=== PATIENT | male | born 1955 | race Caucasian/White ===

== ENCOUNTER 2016-09-18 08:01 | Inpatient (IN) ==
[2016-09-18] MEDS ORDERED: METOPROLOL TARTRATE 5 MG/5 ML VIAL IV STA (08:22)
[2016-09-18] MEDS ORDERED: MORPHINE 2 MG/1 ML SYRINGE IV PRN (08:22)
[2016-09-18] MEDS ORDERED: ENOXAPARIN 100 MG/ML SYRINGE SUBCUT STA (08:22)
[2016-09-18] MEDS ORDERED: NITROGLYCERIN 2% OINT 1 INCH/GM PACK TOP STA (08:22)
[2016-09-18] MEDS ORDERED: ONDANSETRON 4 MG/2 ML VIAL IV PRN ×2 (08:22→11:03)
[2016-09-18] MEDS ORDERED: ASPIRIN 325 MG TABLET PO STA (08:22)
[2016-09-18] MEDS ORDERED: NITROGLYCERIN SL 0.4 MG TABLET SL PRN ×3 (08:22→11:24)
--- NOTE | 2016-09-18 08:25 | EKG Report ---
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
[2016-09-18] MEDS ORDERED: NITROGLYCERIN 2% OINT 1 INCH/GM PACK TOP ONE (08:31)
[2016-09-18] MEDS ORDERED: METOPROLOL TARTRATE 5 MG/5 ML VIAL IV ONE (08:32)
[2016-09-18] MEDS ORDERED: ENOXAPARIN 80 MG/0.8 ML SYRINGE SUBCUT ONE (08:32)
[2016-09-18] MEDS ORDERED: ASPIRIN 325 MG TABLET ONE (08:32)
--- NOTE | 2016-09-18 08:41 | Emergency Department Note ---
Nida Johnson Mantricia, am scribing for, and in the presence of, Anthony Elias MD 08:31. Jada Johnson James D, MD, personally performed the services described in this documentation, ascribed by Chato Alva in my presence, and it is both accurate and complete 837 . Arrival - Arrival Chief Complaint: Chest Pain Stated Complaint: cp ED Nursing Triage Note: C/O CHEST PAIN WITH ONSET SATURDAY. +NUMBESS IN ARMS, +SOB Mode of Arrival: Ambulatory Limitations: No Limitations Source: Patient, Significant other Time Seen by Provider: 09/18/16 08:22 - History of Present Illness HPI Narrative: Pt is a 60 y/o white male arriving to Ed with c/o chest pain that onset 2 days ago. Pt reports that he was fixing a window when he noticed the pain and that it worsens when walking. Pt has 2 stents placed and states that the pain now is similar to the pain he was experiencing before the stents. He reports SOB and states that the pain radiates to his LUE. He reports that he has been taking NTG , but they have and not have been helping. Pt has a PMHX of HTN. He reports no other complaints to ED. Onset (ago): day(s) Consistency: constant Severity: moderate Allergies/Adverse Reactions: Allergies Allergy/AdvReac Type Severity Reaction Status Date / Time No Known Allergies Allergy Unverified 09/18/16 08:06 Review of System - Review of System 12 point system: reviewed and no additional remarkable complaints except as stated - Review of System Constitutional: Absent: chills, diaphoresis, fever Eyes: Absent: discharge, pain Cardiovascular: Present: chest pain, dyspnea on exertion Gastrointestinal: Absent: abdominal pain, nausea, vomiting, diarrhea Musculoskeletal: Present: arm pain. Absent: back pain, leg pain, neck pain Medical,Surgical,& Family Hx - Medical History Cardio: History of: Hypertension, [place] Endocrine: History of: Diabetes Mellitus (NIDDM) Genitourinary: History of: Kidney Stones - Surgical History Cardiac Surgeries: Sugical HX of: Cardiac Catheterization (WITH STENTS) - Family History Family History: Reports;: Family Cancer, Family Heart Disease - Social History Smoking Status: Current every day smoker Frequency of Alcohol Use: Rarely Type of Drug Use: None Functional capacity: independent ambulation Exam Physical Examination: GENERAL: This is a well-nourished, well-developed male in no apparent distress. VITAL SIGNS: HEENT: Head is normocephalic and atraumatic. Pupils are equally round and reactive to light. Extraocular movement are intact. Oropharynx is benign with moist mucous membranes. NECK: Neck is soft and supple without tenderness. There are no masses. There is no lymphadenopathy. LUNGS: Lungs are clear to auscultation bilaterally. Chest rises symmetrically. There is no chest wall tenderness. CV: Heart is regular rate and rhythm without murmurs, rubs, or gallops. Midsternal tendernes present. ABDOMEN: Abdomen is soft, non-tender to palpation. There are no abnormal masses palpated. There is no organomegaly. Bowel sounds are present and active. SKIN: Skin is warm and dry. No rash. EXTREMITIES: Patient has full range of motion without tenderness. There is no pedal edema. NEUROLOGIC: Awake, alert, and oriented x4. Cranial nerves II through XII are grossly intact. There are no motorsensory deficits. PSYCHIATRIC: Normal affect. Normal mood. Vital Signs: Vital Signs Temperature 97.1 F L 09/18/16 08:23 Pulse Rate 79 09/18/16 08:40 Respiratory Rate 22 09/18/16 08:40 Blood Pressure 169/101 09/18/16 08:40 O2 Sat by Pulse Oximetry 98 09/18/16 08:40 Course Course Narrative: Patient was given nitroglycerin, aspirin, Lovenox, morphine, metoprolol, and Zofran in the emergency department. Following administration of these medications the patient had marked improvement in his pain. Pain however was not completely relieved with these meds. - Consultations Consultation #1: Discussed with Dr. Dubon. Patient will be admitted to his service. The patient will be seen in the emergency department by him. Patient will be taken to the [facility] for left heart cath and PCI. Time: 08:45 Consultation #2: Once again talked with Dr. Dubon after return of patient's troponin. Patient will be taken to the [facility]. Time: 09:21 Results - Labs CBC & BMP: 09/18/16 08:33 09/18/16 08:33 Lab Results: I have reviewed the patients labs Labs: Laboratory Tests 09/18/16 08:33 Troponin I 10.700 H - EKG EKG results: interpreted by ERMD - Impressions EKG: Normal sinus rhythm with a rate of 80, ST segment depression laterally consistent with lateral ischemia, normal axis. - Diagnostic Findings Procedure: Chest x-ray: image reviewed by me (No infiltrates, no pleural effusions., Some increased pulmonary markings bilaterally.) Critical Care Time Critical Care Time: Yes Total Critical Care Time: 60 Attestation: Administration of morphine, Zofran, nitroglycerin, metoprolol, Lovenox and aspirin. Disposition Clinical Impression: Diabetes mellitus, Nicotine addiction, Essential hypertension, Coronary artery disease, Non-ST elevation PA (NSTEMI) Case discussed with: patient Disposition: Still a Patient Condition: Stable Time of Disposition: 08:39
[2016-09-18 08:44] LABS: Basophils # 0.1 10*3/uL (0.0-0.2); Basophils % 0.4 % (0.0-0.8); Eosinophils # 0.2 10*3/uL (0.0-0.87); Eosinophils % 1.4 % (0.00-10.9); Hematocrit 43.4 VOL% (42.0-52.0); Hemoglobin 15.1 GM/DL (14.0-18.0); Immature Granulocytes % 0.6 %; Immature Granulocytes Absolute 0.08 #; Lymphocytes # 2.5 10*3/uL (1.4-4.0); Lymphocytes % 18.4 % (21.2-54.2); Mean Corpuscular HGB Conc 34.8 GM/DL (32-36); Mean Corpuscular Hemoglobin 30 PG (27-34); Mean Corpuscular Volume 86.3 FL (87-102); Mean Platelet Volume 9.9 FL (9.6-12.0); Monocytes # 1.1 10*3/uL (0.11-0.8); Monocytes % 8.2 % (1.7-12.7); Neutrophils # 9.8 10*3/uL (1.4-7.4); Platelet Count 328 T/CUMM (130-400); Red Blood Count 5.03 MC/CUMM (3.8-5.5); Red Cell Distribution Width 15.2 % (9.3-17.3); White Blood Count 13.7 T/CUMM (4-12)
[2016-09-18 08:49] LABS: Apearance,Urine CLEAR (Clear); Bilirubin,Urine Negative (Negative); Blood, Urine Negative (Negative); Glucose,Urine (UA) 50 mg/dL (Negative); Ketones,Urine 5 mg/dL (Negative); Mucus,Urine Occasional /LPF (Occasional); Nitrite,Urine Negative (Negative); Protein,Urine Negative; RBC,Urine 1 /HPF (0-4); Squamous Epithelial Cell,Urine Occasional /HPF (0-10); Urine Color Straw (Yellow); Urine Specific Gravity 1.012 (1.001-1.035); Urine Urobilinogen < 2.0 EU/DL (0.2-1.0); WBC,Urine <1 /HPF (0-6)
[2016-09-18 08:56] LABS: Barbiturates Screen,Urine Negative (Negative); Benzodiazepines Screen,Urine Positive (Negative); Cannabinoid Screen,Urine Negative (Negative); Opiate Screen,Urine Negative (Negative); Phencyclidine Screen,Urine Negative (Negative)
[2016-09-18 08:57] LABS: PT Patient Result 10.2 SECS; Partial Thromboplastin Time 30.9 SECS (0-40)
--- NOTE | 2016-09-18 09:07 | XRay Report ---
XR chest 2V Date: 09/18/2016 8:22 AM History: Chest pain Comparison: 10/05/2010 Technique: PA and lateral chest Findings: The heart is small and compressed by the over expanded lungs. Chronic scarring with atelectasis and calcified granulomata/nodes. Degenerative changes are noted. Impression: Bullous emphysema with chronic scarring and residual atelectasis. PROCEDURE INTERPRETED AT [facility] DEPARTMENT OF RADIOLOGY Final Report Signed by: Dr. Miriam Son
[2016-09-18 09:11] LABS: Alanine Aminotransferase 24 U/L (16-61); Albumin 3.6 G/DL (3.4-5.0); Alkaline Phosphatase 106 U/L (45-117); Aspartate Amino Transferase 80 U/L (0-37); Bilirubin,Total < 0.39 MG/DL (0.2-1.0); Calcium 8.8 MG/DL (8.5-10.1); Total Protein 7.5 G/DL (6.4-8.3)
[2016-09-18 09:12] LABS: Blood Urea Nitrogen 16 MG/DL (7-18); Glucose 249 MG/DL (74-106); Magnesium 1.9 MG/DL (1.8-2.4); Osmolality,Calculated 283.7 MOS/KG (273-304); Potassium 4.3 MMOL/L (3.5-5.1); Sodium 138 MMOL/L (136-145)
[2016-09-18] MEDS ORDERED: diphenhydrAMINE CAP 25 MG CAPSULE PO ONE (09:36)
[2016-09-18] MEDS ORDERED: DIAZEPAM 5 MG TABLET PO ONE (09:36)
[2016-09-18] MEDS ORDERED: MAGNESIUM SULF RIDER 2 GM in PREMIX 1 EACH IV PRN (09:36)
[2016-09-18] MEDS ORDERED: POTASSIUM CHLORIDE RIDER 10 MEQ in PREMIX 1 EACH IV PRN (09:36)
[2016-09-18] MEDS ORDERED: HYDROmorphone 2 MG/1 ML VIAL ONE (09:38)
[2016-09-18] MEDS ORDERED: LIDOCAINE 1% 20 ML VIAL ONE (09:38)
[2016-09-18] MEDS ORDERED: MIDAZOLAM 2 MG/2 ML VIAL ONE (09:38)
--- NOTE | 2016-09-18 09:44 | Cardiology History & Physical ---
Assessment and Plan (1) Nicotine addiction Status: Acute Assessment and plan: 1. 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 He came back with small non-STEMI September 2013 which was treated medically, now has non-STEMI with persistent waxing and waning pain for 36 hours and slight lateral [address] depression. 2. Given Lovenox and Aggrastat is been ordered 3. Urgent heart catheterization to define his coronary anatomy with intervention is appropriate. 4. Obviously discontinue all smoking and controlling his diabetes and hypertension will be important going forward. He has been noncompliant previously. I discussed with the patient the risks and benefits of heart catheterization including but not limited to: , stroke, heart attack, vascular damage, reaction to medicine or dye, bleeding requiring blood transfusion, failure of the procedure, and the possible need for planned or emergency surgery. I have answered all the patient's questions regarding the procedure, and the patient is agreeable to proceed. Current Visit: Yes (2) Essential hypertension Status: Acute Current Visit: Yes (3) Coronary artery disease Status: Acute Current Visit: Yes (4) Non-ST elevation [place] (NSTEMI) Status: Acute Current Visit: Yes History of Present Illness Chief complaint: cp History of present illness: Mr. Barron is a 60 year old male known to me who did not follow-up after his last event 2013. He presented September 2010 with chest pain and apparently had mid to distal LAD stent placed at that time when he had classic progressive angina. He also had a CT of the right coronary which could not be opened at that time in the midportion. He came back in September 2013 with non-STEMI when he had patent LAD stent and again mid RCA occlusion filling by left right collaterals was treated medically. He continues to smoke a pack a day, reports that he has had constant waxing and waning chest pain for the last 36 hours rating to his left shoulder. He has associated shortness of breath. He had no relief with nitroglycerin but I gave him a headache. He took BC powders. In the ER he had trivial lateral ST depression and persistent chest pain. He has significant elevated troponin was diagnosed with non-STEMI. Allergies Allergy/AdvReac Type Severity Reaction Status Date / Time No Known Allergies Allergy Unverified 09/18/16 08:06 Medical,Surgical,& Family Hx - Medical History Cardio: History of: Hypertension, [place] Endocrine: History of: Diabetes Mellitus (NIDDM) Genitourinary: History of: Kidney Stones - Surgical History Cardiac Surgeries: Sugical HX of: Cardiac Catheterization (WITH STENTS) - Family History Family History: Reports;: Family Cancer, Family Heart Disease - Social History Smoking Status: Current every day smoker Frequency of Alcohol Use: Rarely Type of Drug Use: None Cardiology Physical Exam - Constitutional Vitals: Vital Signs Temp Pulse Resp BP Pulse Ox 97.1 F L 79 22 169/101 98 09/18/16 08:23 09/18/16 08:40 09/18/16 08:40 09/18/16 08:40 09/18/16 08:40 Intake and Output 09/17/16 09/18/16 09/18/16 23:59 07:59 15:59 Other: Weight 81.647 kg Patient Weight 09/18/16 23:59 Weight 81.647 kg General appearance: normal weight, mild distress - Head Head exam: Present: normal inspection, normocephalic, atraumatic - Neck Neck exam: Present: normal inspection - Respiratory Respiratory exam: Present: clear to auscultation bilaterally. Absent: stridor, wheezes - Cardiovascular Cardiovascular exam: Present: regular rate and rhythm. Absent: diastolic murmur , rubs - GI/Abdominal GI/Abdominal exam: Present: soft. Absent: tenderness - Extremities Exam Extremities exam: Absent: edema Result/EKG - Labs CBC & BMP: 09/18/16 08:33 09/18/16 08:33 Labs: Laboratory Results - last 24 hr 09/18/16 09/18/16 09/18/16 08:33 08:33 08:33 WBC RBC Hgb Hct MCV MCH MCHC RDW Plt Count MPV Neut % (Auto) Lymph % (Auto) [place] % (Auto) Eos % (Auto) Baso % (Auto) Neut # (Auto) Lymph # (Auto) [place] # (Auto) Eos # (Auto) Baso # (Auto) Immature Gran % Nucleated RBC % Immature Gran # Nucleated RBCs # INR 1.0 PT Patient/Control Mix 10.2 Circ Anticoag PTT 30.9 Sodium 138 Potassium 4.3 Chloride 110 H Carbon Dioxide 23 Anion Gap 9.3 BUN 16 Creatinine 1.30 GFR Calculation 68 BUN/Creatinine Ratio 12.00 Glucose 249 H Calculated Osmolality 283.7 Calcium 8.8 Magnesium 1.9 Total Bilirubin < 0.39 AST 80 H ALT 24 Alkaline Phosphatase 106 Troponin I Total Protein 7.5 Albumin 3.6 Globulin 3.9 H Albumin/Globulin Ratio 0.9 L Lipase 452.0 H Urine Color Straw Urine Appearance Clear Urine pH 5.0 Ur Specific [place] 1.012 Urine Protein Negative Urine Glucose (UA) 50 Urine Ketones 5 Urine Blood Negative Urine Nitrate Negative Urine Bilirubin Negative Urine Urobilinogen < 2.0 H Urine Leukocytes Negative Urine RBC 1 Urine WBC <1 Ur Squamous Epith Cells Occasional Urine Mucus Occasional Ur Culture Indicated? Not indicated Urine Opiates Screen Ur Barbiturates Screen Ur Phencyclidine Scrn U Amphetamine/Methamph U Benzodiazepines Scrn U Cocaine Metab Screen U Cannabinoids Screen 09/18/16 09/18/16 09/18/16 08:33 08:33 08:33 WBC 13.7 H RBC 5.03 Hgb 15.1 Hct 43.4 MCV 86.3 L MCH 30 MCHC 34.8 RDW 15.2 Plt Count 328 MPV 9.9 Neut % (Auto) 71.0 Lymph % (Auto) 18.[address] % (Auto) 8.2 Eos % (Auto) 1.4 Baso % (Auto) 0.4 Neut # (Auto) 9.8 H Lymph # (Auto) 2.5 [place] # (Auto) 1.1 H Eos # (Auto) 0.2 Baso # (Auto) 0.1 Immature Gran % 0.6 Nucleated RBC % 0.0 Immature Gran # 0.08 Nucleated RBCs # 0.00 INR PT Patient/Control Mix Circ Anticoag PTT Sodium Potassium Chloride Carbon Dioxide Anion Gap BUN Creatinine GFR Calculation BUN/Creatinine Ratio Glucose Calculated Osmolality Calcium Magnesium Total Bilirubin AST ALT Alkaline Phosphatase Troponin I 10.700 H Total Protein Albumin Globulin Albumin/Globulin Ratio Lipase Urine Color Urine Appearance Urine pH Ur Specific [place] Urine Protein Urine Glucose (UA) Urine Ketones Urine Blood Urine Nitrate Urine Bilirubin Urine Urobilinogen Urine Leukocytes Urine RBC Urine WBC Ur Squamous Epith Cells Urine Mucus Ur Culture Indicated? Urine Opiates Screen Negative Ur Barbiturates Screen Negative Ur Phencyclidine Scrn Negative U Amphetamine/Methamph Negative U Benzodiazepines Scrn Positive H U Cocaine Metab Screen Negative U Cannabinoids Screen Negative
[2016-09-18] MEDS ORDERED: TIROFIBAN 5,000 MCG/100 ML PREMIX IV ONE (10:00)
[2016-09-18] MEDS: TIROFIBAN 5,000 MCG/100 ML PREMIX IV SCH ×3 (10:06→23:47)
[2016-09-18] MEDS ORDERED: TICAGRELOR 90 MG TABLET ONE (10:39)
--- NOTE | 2016-09-18 11:02 | Cardiac Catheterization ---
Date of Procedure:: 09/18/16 Post-op diagnosis: same Procedure: Procedure performed: 1. Left heart catheterization 2. Coronary angiography 3. Left ventriculography 4. Angioplasty stenting of distal circumflex occlusion with drug-eluting stent (2.25 x 16 synergy) 5. Status post angioplasty stenting of mid LAD with drug-eluting stent oh ( 2.25 x 32 Synergy) 6. Right femoral arteriotomy closed with Angio-Seal device Brief clinical summary: Mr. Magallanes came in with 36 hours of waxing and waning chest pain with non-STEMI and minimal ST depression laterally. He continues to smoke. Description of procedure: After obtaining informed consent, the right groin was prepped and draped in the usual sterile fashion. Next a short 6 Welsh sheath was placed in the right femoral artery using a modified Seldinger technique, after the patient received IV sedation and local anesthetic. Next a JL4 catheter was advanced over a guidewire under fluoroscopic guidance, and was engaged to the left coronary artery after which angiography was performed in multiple views. Percutaneous coronary mention was then performed as described below. After the intervention, a JR4 catheter was advanced in similar fashion, and was engaged to the right coronary artery after which angiography was performed in multiple views. Next a bent pigtail catheter was advanced into the left ventricle, where hemodynamic measurements were obtained, and left ventriculography was performed. An angiogram of the sheath showed that it was inserted in the right common femoral artery in a vessel suitable for closure. Hemostasis was obtained with Angio-Seal device with no residual bleeding. 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 Percutaneous coronary mention: The patient on the [place] having received aspirin and full dose Lovenox. We gave him Aggrastat bolus and infusion. I have asked the EBU 3.5 guiding catheter to engage the left coronary artery which provided fairly good support. A pro-water wire was advanced across the distal occlusion with little difficulty. I then advanced a 2.25 x 20 balloon across did not performed inflation to below nominal pressures. This restored ELIO-3 flow with at least 50% residual stenosis distally at the bifurcation of the OM 2 and the circumflex proper. The balloon was then removed and a 2.25 x 16 Synergy stent was advanced across the area of previous occlusion was dilated to 2.17 mm just below nominal pressure. The stent appeared to be well sized proximally but oversized a bit distally. The balloon was removed and a 2.0 x 20 was advanced and approximately nominal pressure angioplasty was performed in the distal circumflex with 30% residual stenosis by ELIO-3 flow. The balloon was then removed and the wire was read directed down the LAD into the distal LAD with modest difficulty. Next the 2.0 x 20 balloon was advanced across the area of severe ISR as well as the significant disease just distal to stent him just proximal to the stent. It was dilated to above nominal pressures. There was over 30% residual stenosis. The balloon was removed and a 2.25 x 32 mm Synergy stent was advanced across the entire of disease and was deployed at just below nominal pressures. The stent was slightly oversized distally with undersized proximally. Therefore the balloon was removed and a 2.75 x 15 noncompliant balloon was advanced into the proximal portion of the stent was dilated to above nominal pressures with an excellent radiographic result. The patient tolerated without complication. Coronary angiography: Left main coronary is normal development free disease. Left anterior descending artery is of average caliber proximally with 3 thin diagonal branches being noted. There is also a 70% mid LAD stenosis prior to 90 % in-stent restenosis involving the vessel just distal to the stent. The LAD does just reach the apex. The circumflex is larger than average caliber and gives off a thin OM1 branch with a widely patent mid circumflex stent, and a large OM 2 branch just after the stent with 50% proximal stenosis. There is a mid circumflex occlusion immediately after the takeoff of the OM 2. After opening the vessel there is noted to be a thinner than average OM 3 branch, and 3 reasonably thin posterolateral branches. There is diffuse intermediate disease in the distal circumflex. The right coronary artery has a subtotal proximal occlusion, as well as a subtotal distal occlusion with ELIO II flow being noted in the PDA which also fills by some left right collaterals. It appears to be a dominant but small than average caliber vessel. Left ventricular: Left ventricle appears normal in size with normal overall LV systolic function. Ejection fraction 55% with moderate discrete inferobasal hypokinesis. Impression: 1. Normal overall LV systolic function with ejection fraction estimated 55% with discrete inferobasal hypokinesis 2. Right dominant system 3. Coronary artery disease as described above including but not limited to: A. Diffuse 70-90% mid LAD stenosis (most severe diseases in-stent with significant disease also in her proximal to it) B. Patent mid circumflex stent with mid circumflex occlusion immediately at the takeoff of a large OM 2 branch C. Subtotal proximal and distal RCA occlusions with ELIO II flow in the PDA with some filling also from left right collaterals. 4. Status post angioplasty and stenting of mid circumflex occlusion with drug- eluting stent (2.25 x 16 Synergy) with excellent result after post dilating the distal vasculature with 2.0 X 20 balloon. 5. Status post stenting of mid LAD nez perce and severe in-stent disease with drug -eluting stent (2.25 x 32 Synergy), with excellent result after post LAD in the proximal portion with 2.75 mm balloon) Recommendation discussion: It is clear that the distal circumflex occlusion was the culprit vessel. However we achieved very good result cart distending is clearly significant LAD disease which is fairly diffuse. In 2010 he poorly had attempt open his right CTA without success. However his RCA appears to be addressable by percutaneous means. He has subtotal proximal and distal lesions. However given his acute event and dying and x-ray exposure this could be considered to be performed at a later time. Getting him to stop smoking will be portillo as well as taking his baby aspirin Brilinta without fail. Anesthesia: minimal conscious sedation Surgeon / Physician: Luis Carlos Dubon Industrial Methods Consultant: other Estimated blood loss: minimal Specimens: none sent Condition: stable Disposition: ICU/CCU - Discharge Disposition: Still a Patient - Medications / Follow-up
[2016-09-18] MEDS ORDERED: ZALEPLON 5 MG CAPSULE PO PRN ×2 (11:03→11:24)
[2016-09-18] MEDS ORDERED: HYDROmorphone 2 MG/1 ML VIAL IV PRN (11:03)
[2016-09-18] MEDS ORDERED: PANTOPRAZOLE 40 MG TABLET PO SCH (11:30)
[2016-09-18] MEDS ORDERED: ROSUVASTATIN 20 MG TABLET PO SCH (11:30)
[2016-09-18] MEDS ORDERED: SODIUM CHLORIDE 0.45% 1,000 ML IV SCH (11:30)
[2016-09-18] MEDS: SODIUM CHLORIDE 0.45% 1,000 ML IV SCH (11:47)
[2016-09-18 15:00] LABS: CKMB % 8.8 %
[2016-09-18 15:10] LABS: Troponin I Only 65.7 NG/ML (0.00-0.045)
[2016-09-18] MEDS: TICAGRELOR 90 MG TABLET PO SCH (20:08)
[2016-09-18] MEDS: CARVEDILOL 3.125 MG TABLET PO SCH (20:08)
[2016-09-18] MEDS ORDERED: TICAGRELOR 90 MG TABLET PO SCH (21:00)
[2016-09-18] MEDS ORDERED: CARVEDILOL 6.25 MG TABLET PO SCH (21:00)
[2016-09-19] MEDS: SODIUM CHLORIDE 0.45% 1,000 ML IV SCH (01:12)
[2016-09-19 04:12] LABS: Basophils # 0.1 10*3/uL (0.0-0.2); Basophils % 0.6 % (0.0-0.8); Eosinophils # 0.1 10*3/uL (0.0-0.87); Eosinophils % 1.2 % (0.00-10.9); Hematocrit 38.5 VOL% (42.0-52.0); Hemoglobin 13.2 GM/DL (14.0-18.0); Immature Granulocytes % 0.4 %; Immature Granulocytes Absolute 0.04 #; Lymphocytes # 2.9 10*3/uL (1.4-4.0); Lymphocytes % 27.6 % (21.2-54.2); Mean Corpuscular HGB Conc 34.3 GM/DL (32-36); Mean Corpuscular Hemoglobin 30 PG (27-34); Mean Corpuscular Volume 86.3 FL (87-102); Mean Platelet Volume 10.2 FL (9.6-12.0); Monocytes # 1.4 10*3/uL (0.11-0.8); Monocytes % 12.9 % (1.7-12.7); Neutrophils # 6.1 10*3/uL (1.4-7.4); Neutrophils % 57.3 % (38.7-73.9); Platelet Count 294 T/CUMM (130-400); Red Blood Count 4.46 MC/CUMM (3.8-5.5); Red Cell Distribution Width 15.3 % (9.3-17.3); White Blood Count 10.6 T/CUMM (4-12)
[2016-09-19 04:42] LABS: Troponin I Only 16.3 NG/ML (0.00-0.045)
[2016-09-19 04:48] LABS: Calcium 8.6 MG/DL (8.5-10.1); Osmolality,Calculated 285.1 MOS/KG (273-304); Potassium 3.6 MMOL/L (3.5-5.1)
[2016-09-19 04:49] LABS: Risk Ratio 5.64; VLDL CHOLESTEROL 32.2 MG/DL
--- NOTE | 2016-09-19 07:19 | Cardiology Progress Note ---
Assessment and Plan (1) Nicotine addiction Status: Acute Assessment and plan: 1. 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 He came back with small non-STEMI September 2013 which was treated medically, now has non-STEMI with persistent waxing and waning pain for 36 hours [address] slight lateral [address] depression. 2. Given Lovenox and Aggrastat is been ordered 3. Urgent heart catheterization to define his coronary anatomy with intervention is appropriate. 4. Obviously discontinue all smoking and controlling his diabetes and hypertension will be important going forward. He has been noncompliant previously. I discussed with the patient the risks and benefits of heart catheterization including but not limited to: , stroke, heart attack, vascular damage, reaction to medicine or dye, bleeding requiring blood transfusion, failure of the procedure, and the possible need for planned or emergency surgery. I have answered all the patient's questions regarding the procedure, and the patient is agreeable to proceed. September 19 update: 1. Hemodynamically stable doing well status post non-STEMI with stenting of subtotal circumflex, and severe mid LAD disease yesterday without angina, or any complaints. 2. Place nicotine patch 14 mg, as the patient does not want Chantix "I am afraid of the mental side effects" 3. Right groin bruit; check ultrasound to rule out pseudoaneurysm 4. Start low-dose ALLEY inhibitor 5. We discussed avoiding simple carbohydrates (Coca[employer]Cola on his bedside table) 6. Consider restarting Glucophage tomorrow 7. Critical proximal distal right coronary disease is relatively chronic but could probably be addressed by PCI at a later time. 8. Transfer to telemetry unit per Current Visit: Yes (2) Essential hypertension Status: Acute Current Visit: Yes (3) Coronary artery disease Status: Acute Current Visit: Yes (4) Non-ST elevation NE (NSTEMI) Status: Acute Current Visit: Yes Cardiology - PN: Subj Interval history: Mr. Magallanes has had no trouble last night. He reports "I feel like a new man". He had no chest pain or dysrhythmia. Is not have any discomfort in his right groin access site. Exam (Progress Note) - Constitutional Vitals: Period Temp Pulse Resp BP Sys/Diaz Pulse Ox Last 24 Hr 97.1 F-98.5 F 55-87 12-24 100-187/56-106 89-98 General appearance: normal weight, no acute distress - Head Head exam: Present: normal inspection, normocephalic, atraumatic - Neck Neck exam: Present: normal inspection - Respiratory Respiratory exam: Present: clear to auscultation bilaterally. Absent: rhonchi, stridor - Cardiovascular Cardiovascular exam: Present: regular rate and rhythm. Absent: diastolic murmur , rubs - GI/Abdominal GI/Abdominal exam: Present: soft. Absent: tenderness - Extremities Exam Extremities exam: Present: other (Bruit at right groin site). Absent: edema Result/EKG - Labs CBC & BMP: 09/19/16 03:43 09/19/16 03:43 Labs: Laboratory Results - last 24 hr 09/18/16 09/18/16 09/18/16 08:33 08:33 08:33 WBC RBC Hgb Hct MCV MCH MCHC RDW Plt Count MPV Neut % (Auto) Lymph % (Auto) [place] % (Auto) Eos % (Auto) Baso % (Auto) Neut # (Auto) Lymph # (Auto) [place] # (Auto) Eos # (Auto) Baso # (Auto) Immature Gran % Nucleated RBC % Immature Gran # Nucleated RBCs # INR 1.0 PT Patient/Control Mix 10.2 Circ Anticoag PTT 30.9 Sodium 138 Potassium 4.3 Chloride 110 H Carbon Dioxide 23 Anion Gap 9.3 BUN 16 Creatinine 1.30 GFR Calculation 68 BUN/Creatinine Ratio 12.00 Glucose 249 H Calculated Osmolality 283.7 Calcium 8.8 Magnesium 1.9 Total Bilirubin < 0.39 AST 80 H ALT 24 Alkaline Phosphatase 106 Total Creatine Kinase CK-MB (CK-2) CK and CKMB Interp Troponin I Total Protein 7.5 Albumin 3.6 Globulin 3.9 H Albumin/Globulin Ratio 0.9 L Triglycerides Cholesterol LDL Cholesterol VLDL Cholesterol HDL Cholesterol Heart Disease Risk Ratio Lipase 452.0 H Urine Color Straw Urine Appearance Clear Urine pH 5.0 Ur Specific [place] 1.012 Urine Protein Negative Urine Glucose (UA) 50 Urine Ketones 5 Urine Blood Negative Urine Nitrate Negative Urine Bilirubin Negative Urine Urobilinogen < 2.0 H Urine Leukocytes Negative Urine RBC 1 Urine WBC <1 Ur Squamous Epith Cells Occasional Urine Mucus Occasional Ur Culture Indicated? Not indicated Urine Opiates Screen Ur Barbiturates Screen Ur Phencyclidine Scrn U Amphetamine/Methamph U Benzodiazepines Scrn U Cocaine Metab Screen U Cannabinoids Screen 09/18/16 09/18/16 09/18/16 08:33 08:33 08:33 WBC 13.7 H RBC 5.03 Hgb 15.1 Hct 43.4 MCV 86.3 L MCH 30 MCHC 34.8 RDW 15.2 Plt Count 328 MPV 9.9 Neut % (Auto) 71.0 Lymph % (Auto) 18.4 L [place] % (Auto) 8.2 Eos % (Auto) 1.4 Baso % (Auto) 0.4 Neut # (Auto) 9.8 H Lymph # (Auto) 2.5 [place] # (Auto) 1.1 H Eos # (Auto) 0.2 Baso # (Auto) 0.1 Immature Gran % 0.6 Nucleated RBC % 0.0 Immature Gran # 0.08 Nucleated RBCs # 0.00 INR PT Patient/Control Mix Circ Anticoag PTT Sodium Potassium Chloride Carbon Dioxide Anion Gap BUN Creatinine GFR Calculation BUN/Creatinine Ratio Glucose Calculated Osmolality Calcium Magnesium Total Bilirubin AST ALT Alkaline Phosphatase Total Creatine Kinase CK-MB (CK-2) CK and CKMB Interp Troponin I 10.700 H Total Protein Albumin Globulin Albumin/Globulin Ratio Triglycerides Cholesterol LDL Cholesterol VLDL Cholesterol HDL Cholesterol Heart Disease Risk Ratio Lipase Urine Color Urine Appearance Urine pH Ur Specific [place] Urine Protein Urine Glucose (UA) Urine Ketones Urine Blood Urine Nitrate Urine Bilirubin Urine Urobilinogen Urine Leukocytes Urine RBC Urine WBC Ur Squamous Epith Cells Urine Mucus Ur Culture Indicated? Urine Opiates Screen Negative Ur Barbiturates Screen Negative Ur Phencyclidine Scrn Negative U Amphetamine/Methamph Negative U Benzodiazepines Scrn Positive H U Cocaine Metab Screen Negative U Cannabinoids Screen Negative 09/18/16 09/19/16 09/19/16 13:29 03:43 03:43 WBC 10.6 RBC 4.46 Hgb 13.2 L Hct 38.5 L MCV 86.3 L MCH 30 MCHC 34.3 RDW 15.3 Plt Count 294 MPV 10.2 Neut % (Auto) 57.3 Lymph % (Auto) 27.6 [place] % (Auto) 12.9 H Eos % (Auto) 1.2 Baso % (Auto) 0.6 Neut # (Auto) 6.1 Lymph # (Auto) 2.9 [place] # (Auto) 1.4 H Eos # (Auto) 0.1 Baso # (Auto) 0.1 Immature Gran % 0.4 Nucleated RBC % 0.0 Immature Gran # 0.04 Nucleated RBCs # 0.00 INR PT Patient/Control Mix Circ Anticoag PTT Sodium Potassium Chloride Carbon Dioxide Anion Gap BUN Creatinine GFR Calculation BUN/Creatinine Ratio Glucose Calculated Osmolality Calcium Magnesium Total Bilirubin AST ALT Alkaline Phosphatase Total Creatine Kinase 1068 H 508 H D CK-MB (CK-2) 94.3 H 25.2 H D CK and CKMB Interp 8.8 5.0 Troponin I 65.700 H D 16.300 H D Total Protein Albumin Globulin Albumin/Globulin Ratio Triglycerides Cholesterol LDL Cholesterol VLDL Cholesterol HDL Cholesterol Heart Disease Risk Ratio Lipase Urine Color Urine Appearance Urine pH Ur Specific [place] Urine Protein Urine Glucose (UA) Urine Ketones Urine Blood Urine Nitrate Urine Bilirubin Urine Urobilinogen Urine Leukocytes Urine RBC Urine WBC Ur Squamous Epith Cells Urine Mucus Ur Culture Indicated? Urine Opiates Screen Ur Barbiturates Screen Ur Phencyclidine Scrn U Amphetamine/Methamph U Benzodiazepines Scrn U Cocaine Metab Screen U Cannabinoids Screen 09/19/16 03:43 WBC RBC Hgb Hct MCV MCH MCHC RDW Plt Count MPV Neut % (Auto) Lymph % (Auto) [place] % (Auto) Eos % (Auto) Baso % (Auto) Neut # (Auto) Lymph # (Auto) [place] # (Auto) Eos # (Auto) Baso # (Auto) Immature Gran % Nucleated RBC % Immature Gran # Nucleated RBCs # INR PT Patient/Control Mix Circ Anticoag PTT Sodium 142 Potassium 3.6 Chloride 111 H Carbon Dioxide 22 Anion Gap 12.6 BUN 14 Creatinine 1.10 GFR Calculation 82 BUN/Creatinine Ratio 12.00 Glucose 141 H Calculated Osmolality 285.1 Calcium 8.6 Magnesium 2.0 Total Bilirubin AST ALT Alkaline Phosphatase Total Creatine Kinase CK-MB (CK-2) CK and CKMB Interp Troponin I Total Protein Albumin Globulin Albumin/Globulin Ratio Triglycerides 161 H Cholesterol 186 LDL Cholesterol 140.0 VLDL Cholesterol 32.2 HDL Cholesterol 33 L Heart Disease Risk Ratio 5.64 Lipase Urine Color Urine Appearance Urine pH Ur Specific [place] Urine Protein Urine Glucose (UA) Urine Ketones Urine Blood Urine Nitrate Urine Bilirubin Urine Urobilinogen Urine Leukocytes Urine RBC Urine WBC Ur Squamous Epith Cells Urine Mucus Ur Culture Indicated? Urine Opiates Screen Ur Barbiturates Screen Ur Phencyclidine Scrn U Amphetamine/Methamph U Benzodiazepines Scrn U Cocaine Metab Screen U Cannabinoids Screen Specialty Discharge - Follow Up or Referrals
[2016-09-19] MEDS: NICOTINE 14 MG/24 HR PATCH TRANSDERM SCH (08:02)
[2016-09-19] MEDS: CARVEDILOL 3.125 MG TABLET PO SCH ×2 (08:03→20:35)
[2016-09-19] MEDS: ROSUVASTATIN 20 MG TABLET PO SCH (08:03)
[2016-09-19] MEDS: TICAGRELOR 90 MG TABLET PO SCH ×2 (08:03→20:35)
[2016-09-19] MEDS: LISINOPRIL 5 MG TABLET PO SCH ×2 (08:03→20:35)
[2016-09-19] MEDS: PANTOPRAZOLE 40 MG TABLET PO SCH (08:03)
[2016-09-19] MEDS: ASPIRIN EC 81 MG TABLET PO SCH (08:03)
--- NOTE | 2016-09-19 08:04 | EKG Report ---
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
[2016-09-19] MEDS ORDERED: ASPIRIN EC 81 MG TABLET PO SCH (09:00)
--- NOTE | 2016-09-19 10:54 | Ultrasound Report ---
US arterial duplex LE RT Indication: Right groin bruit after heart catheter. Evaluate for pseudoaneurysm. Arterial Doppler ultrasound right groin: Herbert scale, color Doppler and pulse Doppler interrogation of the right groin. No pseudoaneurysm, abscess or thrombus identified. Normal arterial and venous Doppler waveforms are present in the right common femoral artery and vein respectively. Impression: No evidence of pseudoaneurysm or AV fistula. PROCEDURE INTERPRETED AT [facility] DEPARTMENT OF RADIOLOGY Final Report Signed by: Oliver Moore M.D.
[2016-09-20 04:35] LABS: Basophils # 0.1 10*3/uL (0.0-0.2); Basophils % 0.4 % (0.0-0.8); Eosinophils # 0.2 10*3/uL (0.0-0.87); Eosinophils % 1.5 % (0.00-10.9); Hematocrit 39.9 VOL% (42.0-52.0); Hemoglobin 13.8 GM/DL (14.0-18.0); Immature Granulocytes % 0.5 %; Immature Granulocytes Absolute 0.06 #; Lymphocytes # 2.5 10*3/uL (1.4-4.0); Lymphocytes % 20.5 % (21.2-54.2); Mean Corpuscular HGB Conc 34.6 GM/DL (32-36); Mean Corpuscular Hemoglobin 30 PG (27-34); Mean Corpuscular Volume 86.6 FL (87-102); Monocytes # 1.7 10*3/uL (0.11-0.8); Monocytes % 14.1 % (1.7-12.7); Neutrophils # 7.7 10*3/uL (1.4-7.4); Platelet Count 272 T/CUMM (130-400); Red Blood Count 4.61 MC/CUMM (3.8-5.5); Red Cell Distribution Width 14.8 % (9.3-17.3); White Blood Count 12.2 T/CUMM (4-12)
[2016-09-20 05:03] LABS: Calcium 8.4 MG/DL (8.5-10.1); Magnesium 1.9 MG/DL (1.8-2.4); Osmolality,Calculated 285.3 MOS/KG (273-304); Potassium 3.6 MMOL/L (3.5-5.1)
[2016-09-20] MEDS: ASPIRIN EC 81 MG TABLET PO SCH (08:23)
[2016-09-20] MEDS: TICAGRELOR 90 MG TABLET PO SCH (08:23)
[2016-09-20] MEDS: PANTOPRAZOLE 40 MG TABLET PO SCH (08:23)
[2016-09-20] MEDS: CARVEDILOL 3.125 MG TABLET PO SCH (08:24)
[2016-09-20] MEDS: NICOTINE 14 MG/24 HR PATCH TRANSDERM SCH (08:24)
[2016-09-20] MEDS: ROSUVASTATIN 20 MG TABLET PO SCH (08:24)
[2016-09-20] MEDS: LISINOPRIL 5 MG TABLET PO SCH (08:24)
--- NOTE | 2016-09-20 11:03 | Discharge Summary ---
<Maddie Maurer Antoni - Last Filed: 09/20/16 11:23> Hospital Course - Hospital Course Hospital Course: Sequins Winder: Dr. Dubon Mr. Barron is a 60-year-old male with a history of coronary artery disease, hypertension, tobacco abuse, poorly controlled diabetes, dyslipidemia who presented to the emergency room with a constant waxing and waning chest pain lasting approximately 36 hours radiating to the left shoulder with associated shortness of breath. His EKG showed trivial lateral ST depression and he had a significant elevated troponin. He was diagnosed with non-STEMI was taken to the heart catheterization lab. He underwent left heart catheterization on 09/18/[address] Dubon and received drug-eluting stent to the distal circumflex and stent to the mid LAD. He did have subtotal proximal and distal lesions RCA. Given his acute event, and an x-ray exposure, this could be considered to be performed at a later date. Ejection fraction estimated at 55%. He was observed overnight in the CCU and has had no further angina or complaints. He did have a right groin bruit. Ultrasound was obtained and showed no evidence of pseudoaneurysm or AV fistula. He was transferred to the telemetry unit for further monitoring. His cardiac enzymes trended down appropriately. He was started on dual antiplatelet therapy with aspirin and Brilinta. He was also started on an ALLEY inhibitor; beta-deniz and statin were continued. He was counseled on the need for tobacco cessation and diet control including avoiding simple carbohydrates. He was started on nicotine patch. He has been ambulating around the unit without difficulty. His right groin is without bleeding or hematoma. He has a stable bruit. Femoral pulses 3+. He has some slight ecchymosis and mild tenderness to the right groin. Peripheral pulses are 2+ bilaterally. At this time, he has met maximum benefit from hospitalization and will be discharged home. He will need to follow-up with Dr. Dubon in 1-2 weeks. - Time spent with patient Time with patient DS: Less than 30 minutes Diagnosis - Discharge Diagnosis (1) Non-ST elevation VT (NSTEMI) Status: Resolved (2) Coronary artery disease Status: Chronic (3) Diabetes mellitus Status: Chronic (4) Essential hypertension Status: Chronic (5) Nicotine addiction Status: Chronic Specialty Discharge - Follow Up or Referrals Follow up with: Luis Carlos Dubon MD [Physician] - 2 Weeks (Follow up with Dr. Dubon in 1-2 weeks. ) Discharge Plan - Discharge Data Disposition: Disch To Home/Self Care Condition at Discharge: Stable Discharge Diet: diabetic diet, heart healthy Activity: no lifting (over 5# x1 week. ) Hygiene: may shower (Do not submerge cath site beneath water x1 week. ) Weight Bearing at Discharge: full weight bearing Driving: not for (May drive tomorrow.) Contact your physician if you experience:: fever over 101, Difficulty voiding, Redness or swelling, Nausea/Vomiting, Shortness of breath, Bleeding, pain uncontrolled by pain medications - Discharge Medications New Lisinopril [Prinivil] 10 mg PO BID #60 tablet Nicotine 21 mg/24 Hr Patch [Nicoderm CQ 21 mg/24 hr Patch] 1 patch TRANSDERM DAILY #14 patch Aspirin EC Tab 81 mg PO DAILY #30 tablet Nicotine 14 mg/24 Hr Patch [Nicoderm CQ 14 mg/24 hr Patch] 1 patch TRANSDERM DAILY #14 patch Rosuvastatin [Crestor] 40 mg PO DAILY #60 tablet Ticagrelor [Brilinta] 90 mg PO BID #180 tablet Continue Nitroglycerin [Nitrostat] 0.3 mg SL Q5M PRN PRN Reason: Chest Pain Pantoprazole Sodium 40 mg PO DAILY Glimepiride 1 mg PO DAILY Allopurinol 300 mg PO DAILY Carvedilol [Coreg] 3.125 mg PO BID #60 tablet metFORMIN [Glucophage] 500 mg PO DAILY Discontinued Irbesartan 150 mg PO DAILY Atorvastatin [Lipitor] 40 mg PO DAILY Amlodipine Besylate 5 mg PO DAILY - Follow Up or Referral Follow Up: Luis Carlos Dubon MD [Physician] - 2 Weeks (Follow up with Dr. Dubon in 1-2 weeks. ) - Forms/Instructions Instructions: Myocardial Infarction (GEN), Left Heart Catheterization (DC), How to Stop Smoking (GEN), Heart Healthy Diet (GEN), Cigarette Smoking and Your Health (GEN), Coronary Intravascular Stent Placement (DC) Additional Discharge Instructions: Continue Nicotine 14mg/24 hour patch x14 days , then change to 21mg/24 hour patch for tobacco cessation. Exam - Constitutional Vitals: Period Temp Pulse Resp BP Sys/Diaz Pulse Ox Last 24 Hr 98.1 F-99.9 F 70-80 18-20 125-156/71-97 93-96 Exam: General: Present: Appears Well, No Apparent Distress. Pleasant and cooperative. Appears comfortable. HEENT: Present: PERRL, Normocephaly, atraumatic. Mucus Membranes Moist. No jaundice noted. Conjunctiva moist and clear, sclerae anicteric Neck: Present: Supple Neck, Midline Trachea, No Masses, No Bruit, No tenderness Cardiac: Present: Regular Rate and Rhythm, No Murmur Lungs: Present: Clear to auscultation bilaterally, no wheeze, rhonchi, rales. Neuro: Present: Awake, alert, and oriented x3. Moves all extremities well without hemiparesis or paralysis. Grossly Intact. Absent: Resting Tremor, Essential Tremor Abdomen: Present: Soft, Active Bowel Sounds, No Masses, Non-Tender, nondistended. No abdominal bruit or thrill noted. Skin: Present: Clear. Absent: Rash, No skin breakdown. Back: Normal inspection, no vertebral tenderness. Musculoskeletal: Present: No Fluid Collection, No Pain, Normal Range of Motion Extremities: Present: Normal Gait, No Clubbing, No Cyanosis, Upper Extr. Pulses 2+, Lower Extr. Pulses 2+, No edema. Capillary refill less than 3 seconds. Right groin: No bleeding or hematoma. Bruit present. Mild tenderness and ecchymosis noted at site. Distal pulses 2+ bilaterally. Discharge Results Procedures and tests throughout hospitalization: Pending Orders 09/21/16 04:00 BMP w/ Mg [Basic Metabolic Panel w/Mg] IN AM CBC [Comp Blood Count Auto Diff] IN AM Date of Procedure:: 09/18/16 Procedure performed: 1. Left heart catheterization 2. Coronary angiography 3. Left ventriculography 4. Angioplasty stenting of distal circumflex occlusion with drug-eluting stent (2.25 x 16 synergy) 5. Status post angioplasty stenting of mid LAD with drug-eluting stent oh ( 2.25 x 32 Synergy) 6. Right femoral arteriotomy closed with Angio-Seal device Impression: 1. Normal overall LV systolic function with ejection fraction estimated 55% with discrete inferobasal hypokinesis 2. Right dominant system 3. Coronary artery disease as described above including but not limited to: A. Diffuse 70-90% mid LAD stenosis (most severe diseases in-stent with significant disease also in her proximal to it) B. Patent mid circumflex stent with mid circumflex occlusion immediately at the takeoff of a large OM 2 branch C. Subtotal proximal and distal RCA occlusions with ELIO II flow in the PDA with some filling also from left right collaterals. 4. Status post angioplasty and stenting of mid circumflex occlusion with drug- eluting stent (2.25 x 16 Synergy) with excellent result after post dilating the distal vasculature with 2.0 X 20 balloon. 5. Status post stenting of mid LAD [place] and severe in-stent disease with drug -eluting stent (2.25 x 32 Synergy), with excellent result after post LAD in the proximal portion with 2.75 mm balloon) Recommendation discussion: It is clear that the distal circumflex occlusion was the culprit vessel. However we achieved very good result cart distending is clearly significant LAD disease which is fairly diffuse. In 2010 he poorly had attempt open his right CTA without success. However his RCA appears to be addressable by percutaneous means. He has subtotal proximal and distal lesions. However given his acute event and dye and x-ray exposure this could be considered to be performed at a later time. Getting him to stop smoking will be portillo as well as taking his baby aspirin Brilinta without fail. Labs on day of discharge: Labs from last 24 hours 09/20/16 09/20/16 04:10 04:10 WBC 12.2 H RBC 4.61 Hgb 13.8 L Hct 39.9 L MCV 86.6 L MCH 30 MCHC 34.6 RDW 14.8 Plt Count 272 MPV 10.0 Neut % (Auto) 63.0 Lymph % (Auto) 20.5 L [place] % (Auto) 14.1 H Eos % (Auto) 1.5 Baso % (Auto) 0.4 Neut # (Auto) 7.7 H Lymph # (Auto) 2.5 [place] # (Auto) 1.7 H Eos # (Auto) 0.2 Baso # (Auto) 0.1 Immature Gran % 0.5 Nucleated RBC % 0.0 Immature Gran # 0.06 Nucleated RBCs # 0.00 Sodium 141 Potassium 3.6 Chloride 108 H Carbon Dioxide 24 Anion Gap 12.6 BUN 13 Creatinine 0.90 GFR Calculation 104 BUN/Creatinine Ratio 14.00 Glucose 196 H Calculated Osmolality 285.3 Calcium 8.4 L Magnesium 1.9 DS: Provider Date of admission: 09/18/16 11:02 Primary care physician: . No PCP Attending physician on admission: Luis Carlos Sheridan Consults: 09/18/16 11:03 Consult to Cardiac Rehabilitation [CONS] Routine Reason for Cardiac Rehabilitation: Appt Out Pt Cardiac Rehab Consult Comment: NSTEMI; stent 09/18/16 11:40 Consult to Dietitian [CONS] Routine Reason for Dietitian: Other Consult Comment: admission assessment Discharging clinician: POPPY Hernandez Expected date of discharge: 09/20/16 <Luis Carlos Dubon - Last Filed: 09/20/16 12:38> Diagnosis - Discharge Diagnosis (1) Nicotine addiction Status: Chronic (2) Essential hypertension Status: Chronic (3) Coronary artery disease Status: Chronic (4) Non-ST elevation VT (NSTEMI) Status: Resolved
[2016-09-20 12:14] VITALS: BP 136/82
[2016-09-20] MEDS ORDERED: CARVEDILOL 6.25 MG TABLET PO SCH (21:00)
== END 2016-09-20 14:00 | disposition home or self-care (01) | DRG 247 ==
LOC: N.ED 08:01 → N.CC 11:02 → N.CL 11:21 → N.TELEN 09-19 10:13
PROVIDERS: ADMIT Internal Medicine Cardiovascular Disease; ATTEND Internal Medicine Cardiovascular Disease
PROC: CLCCHCL (ICD-10-PCS; 2016-09-18 10:45)

== ENCOUNTER 2021-02-21 08:55 | Inpatient (IN) ==
[2021-02-21] MEDS ORDERED: ONDANSETRON 4 MG/2 ML VIAL IV ONE (10:29)
[2021-02-21] MEDS ORDERED: SODIUM CHLORIDE 0.9% 1,000 ML IV STA ×2 (10:29→12:02)
[2021-02-21] MEDS ORDERED: MORPHINE 2 MG/1 ML SYRINGE IV ONE (10:29)
[2021-02-21 11:12] LABS: Bacteria,Urine Occasional /HPF (Few); Bilirubin,Urine Negative (Negative); Blood, Urine Small mg/dL (Negative); Glucose,Urine (UA) >=500 mg/dL (Negative); Ketones,Urine 20 mg/dL (Negative); Mucus,Urine Occasional /LPF (Occasional); Nitrite,Urine Negative (Negative); Protein,Urine 30 MG/DL; RBC,Urine 6 /HPF (0-4); Urine Appearance CLEAR (Clear); Urine Color Yellow (Yellow); Urine Specific Gravity 1.016 (1.001-1.035)
[2021-02-21 11:31] LABS: Basophils # 0.1 10*3/uL (0.0-0.2); Basophils % 0.3 % (0.0-0.8); Eosinophils % 0.1 % (0.00-10.9); Hematocrit 38.4 VOL% (42.0-52.0); Hemoglobin 13.1 GM/DL (14.0-18.0); Immature Granulocytes % 1.2 %; Immature Granulocytes Absolute 0.42 #; Lymphocytes # 0.9 10*3/uL (1.4-4.0); Lymphocytes % 2.7 % (21.2-54.2); Mean Corpuscular HGB Conc 34.1 GM/DL (32-36); Mean Corpuscular Volume 84.2 FL (87-102); Mean Platelet Volume 9.4 FL (9.6-12.0); Monocytes % 8.3 % (1.7-12.7); Neutrophils % 87.4 % (38.7-73.9); Platelet Count 350 T/CUMM (130-400); Red Blood Count 4.56 MC/CUMM (3.8-5.5); Red Cell Distribution Width 14.9 % (9.3-17.3); White Blood Count 34.1 T/CUMM (4-12)
[2021-02-21 11:41] LABS: INR 1.2; PT Patient Result 12.8 SECS (10.5-12.0)
[2021-02-21 12:03] LABS: Albumin 2.6 G/DL (3.4-5.0); Bilirubin,Total 0.7 MG/DL (0.20-1.00); Calcium 9.1 MG/DL (8.5-10.1); Potassium 3.4 MMOL/L (3.5-5.1); Total Protein 7.5 G/DL (6.4-8.2)
[2021-02-21] MEDS ORDERED: HYDROmorphone 2 MG/1 ML VIAL IV STA (12:13)
[2021-02-21] MEDS ORDERED: VANCOMYCIN INJ 1,000 MG in SODIUM CHLORIDE 0.9% 250 ML IV STA (12:25)
[2021-02-21] MEDS ORDERED: PIPERACILLIN/TAZOBACTAM 3,375 MG in SODIUM CHLORIDE 0.9% 100 ML IV STA (12:25)
[2021-02-21 13:25] LABS: Band Neutrophils 4 % (0-10); Lymphocytes 2 % (20-55); Segmented Neutrophils 89 % (50-85); Total Cells Counted 100
[2021-02-21 13:27] LABS: Schistocytes Slight; Toxic Granulation 1+
[2021-02-21 13:28] LABS: Acanthocytes Few; Platelet Estimate Adequate; Smudge Cells Few
[2021-02-21 13:29] LABS: Reactive Lymphocytes Slight
[2021-02-21] MEDS ORDERED: KETOROLAC 30 MG/1 ML VIAL IV PRN (14:08)
[2021-02-21] MEDS ORDERED: ACETAMINOPHEN 325 MG TABLET PO PRN (14:08)
[2021-02-21] MEDS ORDERED: ALBUTEROL/IPRATROPIUM 3 ML NEB RESP TX PRN (14:08)
[2021-02-21] MEDS ORDERED: DEXTROSE 50% 25 GM/50 ML VIAL IV PRN ×2 (14:13→21:53)
[2021-02-21] MEDS ORDERED: GLUCAGON 1 MG VIAL IM PRN ×2 (14:13→21:53)
[2021-02-21] MEDS: HYDROmorphone 2 MG/1 ML VIAL IV PRN ×2 (14:50→19:00)
[2021-02-21] MEDS: LACTATED RINGERS 1,000 ML IV SCH ×2 (14:50→22:27)
[2021-02-21] MEDS: ALBUTEROL/IPRATROPIUM 3 ML NEB RESP TX SCH (19:52)
[2021-02-21] MEDS ORDERED: LIDOCAINE 2% 5 ML VIAL ONE (20:06)
[2021-02-21] MEDS ORDERED: propofoL 200 MG/20 ML VIAL IV ONE (20:06)
[2021-02-21] MEDS ORDERED: ONDANSETRON 4 MG/2 ML VIAL ONE (20:06)
[2021-02-21] MEDS ORDERED: SEVOFLURANE 1 UNIT/15 MINUTE INH ONE (20:34)
[2021-02-21] MEDS ORDERED: PHENYLEPHRINE 1 MG/10 ML SYRINGE IV ONE (20:38)
[2021-02-21] MEDS ORDERED: INFLUENZA VIRUS VACCINE 0.5 ML SYRINGE IM ONE (22:09)
[2021-02-21] MEDS: INSULIN LISPRO 100 UNIT/ML SUBCUT SCH (22:24)
[2021-02-21] MEDS: ESCITALOPRAM 10 MG TABLET PO SCH (22:26)
[2021-02-21] MEDS: PIPERACILLIN/TAZOBACTAM 3,375 MG in SODIUM CHLORIDE 0.9% 100 ML IV SCH (22:26)
[2021-02-21] MEDS: FLUTICASONE 50 MCG NASAL SPRAY 16 GM BOTTLE BOTH NARES SCH (23:31)
[2021-02-22] MEDS: ALBUTEROL/IPRATROPIUM 3 ML NEB RESP TX SCH ×4 (01:24→20:21)
[2021-02-22] MEDS: INSULIN LISPRO 100 UNIT/ML SUBCUT SCH ×5 (01:48→22:23)
[2021-02-22] MEDS: VANCOMYCIN INJ 1,000 MG in SODIUM CHLORIDE 0.9% 250 ML IV SCH ×2 (02:15→12:31)
[2021-02-22] MEDS ORDERED: BUPIVACAINE MPF 0.25% 30 ML VIAL ONE (06:32)
[2021-02-22] MEDS ORDERED: LIDOCAINE 1%/EPI INJ 20 ML VIAL ONE (06:32)
[2021-02-22] MEDS: PIPERACILLIN/TAZOBACTAM 3,375 MG in SODIUM CHLORIDE 0.9% 100 ML IV SCH ×3 (06:41→22:24)
[2021-02-22 06:48] LABS: Basophils # 0.1 10*3/uL (0.0-0.2); Basophils % 0.2 % (0.0-0.8); Eosinophils # 0.2 10*3/uL (0.0-0.87); Eosinophils % 0.6 % (0.00-10.9); Immature Granulocytes % 1.2 %; Lymphocytes # 2.3 10*3/uL (1.4-4.0); Lymphocytes % 6.7 % (21.2-54.2); Mean Corpuscular HGB Conc 33.2 GM/DL (32-36); Mean Corpuscular Volume 85.4 FL (87-102); Mean Platelet Volume 10.2 FL (9.6-12.0); Monocytes % 7.6 % (1.7-12.7); Neutrophils % 83.7 % (38.7-73.9); White Blood Count 34.5 T/CUMM (4-12)
[2021-02-22 06:50] LABS: Hemoglobin 10.3 GM/DL (14.0-18.0); Red Blood Count 3.63 MC/CUMM (3.8-5.5)
[2021-02-22 06:51] LABS: Platelet Count 275 T/CUMM (130-400)
[2021-02-22 06:53] LABS: Calcium 8.4 MG/DL (8.5-10.1); Osmolality,Calculated 271.1 MOS/KG (273-304); Potassium 3.2 MMOL/L (3.5-5.1)
[2021-02-22] MEDS ORDERED: LIDOCAINE 2% 5 ML VIAL ONE (06:59)
[2021-02-22] MEDS ORDERED: fentaNYL 100 MCG/2 ML VIAL ONE (06:59)
[2021-02-22] MEDS ORDERED: SEVOFLURANE 1 UNIT/15 MINUTE INH ONE (06:59)
[2021-02-22] MEDS ORDERED: propofoL 200 MG/20 ML VIAL IV ONE (06:59)
[2021-02-22] MEDS ORDERED: ONDANSETRON 4 MG/2 ML VIAL ONE (06:59)
[2021-02-22] MEDS ORDERED: LACTATED RINGERS 1,000 ML IV SCH (07:00)
[2021-02-22 07:08] LABS: Band Neutrophils 3 % (0-10); Hypochromasia 1+; Lymphocytes 6 % (20-55); Microcytosis Slight; Ovalocytes Slight; Segmented Neutrophils 89 % (50-85); Total Cells Counted 100
[2021-02-22 07:09] LABS: Platelet Estimate Normal
[2021-02-22] MEDS ORDERED: GLUCAGON 1 MG VIAL IM PRN (09:19)
[2021-02-22] MEDS ORDERED: DEXTROSE 50% 25 GM/50 ML VIAL IV PRN (09:19)
[2021-02-22] MEDS: amLODIPine 5 MG TABLET PO SCH (09:23)
[2021-02-22] MEDS: PANTOPRAZOLE 40 MG TABLET PO SCH (09:23)
[2021-02-22] MEDS: lisinopriL 2.5 MG TABLET PO SCH (09:23)
[2021-02-22] MEDS: FLUTICASONE 50 MCG NASAL SPRAY 16 GM BOTTLE BOTH NARES SCH ×2 (09:24→22:22)
[2021-02-22] MEDS: HYDROmorphone 2 MG/1 ML VIAL IV PRN (17:38)
[2021-02-22] MEDS: LACTATED RINGERS 1,000 ML IV SCH (22:22)
[2021-02-22] MEDS: ESCITALOPRAM 10 MG TABLET PO SCH (22:23)
[2021-02-23] MEDS: ALBUTEROL/IPRATROPIUM 3 ML NEB RESP TX SCH ×3 (00:35→20:24)
[2021-02-23] MEDS: VANCOMYCIN INJ 1,000 MG in SODIUM CHLORIDE 0.9% 250 ML IV SCH ×2 (01:01→13:41)
[2021-02-23] MEDS: HYDROmorphone 2 MG/1 ML VIAL IV PRN ×2 (03:04→23:21)
[2021-02-23] MEDS: LACTATED RINGERS 1,000 ML IV SCH ×4 (03:05→23:40)
[2021-02-23 05:28] LABS: Basophils # 0.1 10*3/uL (0.0-0.2); Basophils % 0.2 % (0.0-0.8); Eosinophils # 0.3 10*3/uL (0.0-0.87); Eosinophils % 1.2 % (0.00-10.9); Hematocrit 30.7 VOL% (42.0-52.0); Hemoglobin 10.1 GM/DL (14.0-18.0); Immature Granulocytes % 1.4 %; Immature Granulocytes Absolute 0.29 #; Lymphocytes # 1.9 10*3/uL (1.4-4.0); Lymphocytes % 8.8 % (21.2-54.2); Mean Corpuscular HGB Conc 32.9 GM/DL (32-36); Mean Corpuscular Volume 85.5 FL (87-102); Mean Platelet Volume 10.4 FL (9.6-12.0); Monocytes % 7.6 % (1.7-12.7); Neutrophils % 80.8 % (38.7-73.9); Platelet Count 279 T/CUMM (130-400); Red Blood Count 3.59 MC/CUMM (3.8-5.5); Red Cell Distribution Width 15.2 % (9.3-17.3); White Blood Count 21.4 T/CUMM (4-12)
[2021-02-23 05:47] LABS: Calcium 7.9 MG/DL (8.5-10.1)
[2021-02-23 05:52] LABS: Eosinophils 1 % (0-10); Hypochromasia Slight; Lymphocytes 6 % (20-55); Microcytosis Slight; Platelet Estimate Normal; Segmented Neutrophils 88 % (50-85); Total Cells Counted 100
[2021-02-23] MEDS: PIPERACILLIN/TAZOBACTAM 3,375 MG in SODIUM CHLORIDE 0.9% 100 ML IV SCH ×3 (06:40→22:00)
[2021-02-23] MEDS: amLODIPine 5 MG TABLET PO SCH (08:40)
[2021-02-23] MEDS: PANTOPRAZOLE 40 MG TABLET PO SCH (08:40)
[2021-02-23] MEDS: FLUTICASONE 50 MCG NASAL SPRAY 16 GM BOTTLE BOTH NARES SCH ×2 (08:40→23:25)
[2021-02-23] MEDS: INSULIN LISPRO 100 UNIT/ML SUBCUT SCH ×4 (08:40→23:39)
[2021-02-23] MEDS: lisinopriL 2.5 MG TABLET PO SCH (08:40)
[2021-02-23] MEDS: SODIUM HYPOCHLORITE 0.25% IRRIG 473 ML BOTTLE TOP SCH (08:41)
[2021-02-23] MEDS: DOCUSATE SODIUM 100 MG CAPSULE PO SCH ×2 (10:21→23:19)
[2021-02-23] MEDS: ESCITALOPRAM 10 MG TABLET PO SCH (23:20)
[2021-02-24] MEDS: VANCOMYCIN INJ 1,000 MG in SODIUM CHLORIDE 0.9% 250 ML IV SCH (01:00)
[2021-02-24] MEDS: ALBUTEROL/IPRATROPIUM 3 ML NEB RESP TX SCH ×5 (01:13→20:12)
[2021-02-24] MEDS: ONDANSETRON 4 MG/2 ML VIAL IV PRN (04:43)
[2021-02-24] MEDS: PIPERACILLIN/TAZOBACTAM 3,375 MG in SODIUM CHLORIDE 0.9% 100 ML IV SCH ×3 (06:00→23:57)
[2021-02-24] MEDS: DOCUSATE SODIUM 100 MG CAPSULE PO SCH ×2 (08:31→21:02)
[2021-02-24] MEDS: amLODIPine 5 MG TABLET PO SCH (08:31)
[2021-02-24] MEDS: lisinopriL 2.5 MG TABLET PO SCH (08:31)
[2021-02-24] MEDS: INSULIN LISPRO 100 UNIT/ML SUBCUT SCH ×4 (08:32→21:02)
[2021-02-24] MEDS: PANTOPRAZOLE 40 MG TABLET PO SCH (08:32)
[2021-02-24] MEDS: FLUTICASONE 50 MCG NASAL SPRAY 16 GM BOTTLE BOTH NARES SCH ×2 (08:33→21:02)
[2021-02-24] MEDS: SODIUM HYPOCHLORITE 0.25% IRRIG 473 ML BOTTLE TOP SCH (08:35)
[2021-02-24 08:53] LABS: Basophils % 0.3 % (0.0-0.8); Eosinophils # 0.3 10*3/uL (0.0-0.87); Eosinophils % 2.4 % (0.00-10.9); Hematocrit 31.7 VOL% (42.0-52.0); Hemoglobin 10.5 GM/DL (14.0-18.0); Immature Granulocytes % 0.9 %; Immature Granulocytes Absolute 0.12 #; Lymphocytes # 1.9 10*3/uL (1.4-4.0); Lymphocytes % 14.5 % (21.2-54.2); Mean Corpuscular HGB Conc 33.1 GM/DL (32-36); Mean Corpuscular Volume 85.7 FL (87-102); Mean Platelet Volume 10.4 FL (9.6-12.0); Monocytes % 10.8 % (1.7-12.7); Neutrophils % 71.1 % (38.7-73.9); Platelet Count 320 T/CUMM (130-400); Red Cell Distribution Width 15.3 % (9.3-17.3); White Blood Count 13.1 T/CUMM (4-12)
[2021-02-24] MEDS: HYDROmorphone 2 MG/1 ML VIAL IV PRN ×2 (09:20→21:01)
[2021-02-24 09:29] LABS: Calcium 7.9 MG/DL (8.5-10.1); Osmolality,Calculated 279.7 MOS/KG (273-304); Potassium 3.4 MMOL/L (3.5-5.1)
[2021-02-24] MEDS: LACTATED RINGERS 1,000 ML IV SCH (10:39)
[2021-02-24] MEDS: ESCITALOPRAM 10 MG TABLET PO SCH (21:02)
[2021-02-25] MEDS: ALBUTEROL/IPRATROPIUM 3 ML NEB RESP TX SCH ×4 (01:00→19:25)
[2021-02-25] MEDS: HYDROmorphone 2 MG/1 ML VIAL IV PRN ×2 (04:58→20:37)
[2021-02-25 06:03] LABS: Basophils % 0.3 % (0.0-0.8); Eosinophils # 0.4 10*3/uL (0.0-0.87); Eosinophils % 2.7 % (0.00-10.9); Hematocrit 30.9 VOL% (42.0-52.0); Hemoglobin 10.3 GM/DL (14.0-18.0); Immature Granulocytes Absolute 0.13 #; Lymphocytes # 1.6 10*3/uL (1.4-4.0); Lymphocytes % 12.2 % (21.2-54.2); Mean Corpuscular HGB Conc 33.3 GM/DL (32-36); Mean Corpuscular Volume 85.4 FL (87-102); Mean Platelet Volume 10.8 FL (9.6-12.0); Monocytes % 12.2 % (1.7-12.7); Neutrophils % 71.6 % (38.7-73.9); Platelet Count 359 T/CUMM (130-400); Red Blood Count 3.62 MC/CUMM (3.8-5.5); Red Cell Distribution Width 15.3 % (9.3-17.3); White Blood Count 13.5 T/CUMM (4-12)
[2021-02-25] MEDS: PIPERACILLIN/TAZOBACTAM 3,375 MG in SODIUM CHLORIDE 0.9% 100 ML IV SCH ×3 (06:41→23:01)
[2021-02-25 06:51] LABS: Calcium 8.3 MG/DL (8.5-10.1); Osmolality,Calculated 272.4 MOS/KG (273-304); Potassium 3.2 MMOL/L (3.5-5.1)
[2021-02-25] MEDS: DOCUSATE SODIUM 100 MG CAPSULE PO SCH ×2 (08:37→20:37)
[2021-02-25] MEDS: PANTOPRAZOLE 40 MG TABLET PO SCH (08:37)
[2021-02-25] MEDS: INSULIN LISPRO 100 UNIT/ML SUBCUT SCH ×4 (08:37→20:38)
[2021-02-25] MEDS: lisinopriL 2.5 MG TABLET PO SCH (08:37)
[2021-02-25] MEDS: amLODIPine 5 MG TABLET PO SCH (08:37)
[2021-02-25] MEDS: SODIUM HYPOCHLORITE 0.25% IRRIG 473 ML BOTTLE TOP SCH (08:38)
[2021-02-25] MEDS: FLUTICASONE 50 MCG NASAL SPRAY 16 GM BOTTLE BOTH NARES SCH ×2 (08:38→20:37)
[2021-02-25] MEDS: POTASSIUM CHLORIDE 20 MEQ TABLET PO PRN ×4 (12:26→18:58)
[2021-02-25] MEDS: ESCITALOPRAM 10 MG TABLET PO SCH (20:37)
[2021-02-26] MEDS: ALBUTEROL/IPRATROPIUM 3 ML NEB RESP TX SCH ×4 (01:22→19:45)
[2021-02-26] MEDS: PIPERACILLIN/TAZOBACTAM 3,375 MG in SODIUM CHLORIDE 0.9% 100 ML IV SCH ×3 (05:57→22:30)
[2021-02-26] MEDS: PANTOPRAZOLE 40 MG TABLET PO SCH (08:18)
[2021-02-26] MEDS: DOCUSATE SODIUM 100 MG CAPSULE PO SCH ×2 (08:18→21:10)
[2021-02-26] MEDS: INSULIN LISPRO 100 UNIT/ML SUBCUT SCH ×4 (08:18→21:11)
[2021-02-26] MEDS: amLODIPine 5 MG TABLET PO SCH (08:18)
[2021-02-26] MEDS: lisinopriL 2.5 MG TABLET PO SCH (08:18)
[2021-02-26] MEDS: FLUTICASONE 50 MCG NASAL SPRAY 16 GM BOTTLE BOTH NARES SCH ×2 (08:19→21:11)
[2021-02-26] MEDS: SODIUM HYPOCHLORITE 0.25% IRRIG 473 ML BOTTLE TOP SCH (08:19)
[2021-02-26] MEDS: ONDANSETRON 4 MG/2 ML VIAL IV PRN (08:22)
[2021-02-26] MEDS: HYDROmorphone 2 MG/1 ML VIAL IV PRN (09:18)
[2021-02-26] MEDS: ENOXAPARIN 40 MG/0.4 ML SYRINGE SUBCUT SCH (11:54)
[2021-02-26] MEDS: ESCITALOPRAM 10 MG TABLET PO SCH (21:10)
[2021-02-27] MEDS: PIPERACILLIN/TAZOBACTAM 3,375 MG in SODIUM CHLORIDE 0.9% 100 ML IV SCH ×3 (05:34→21:23)
[2021-02-27] MEDS: ALBUTEROL/IPRATROPIUM 3 ML NEB RESP TX SCH ×4 (07:46→22:42)
[2021-02-27] MEDS: HYDROmorphone 2 MG/1 ML VIAL IV PRN (09:05)
[2021-02-27] MEDS: lisinopriL 2.5 MG TABLET PO SCH (09:23)
[2021-02-27] MEDS: amLODIPine 5 MG TABLET PO SCH (09:23)
[2021-02-27] MEDS: ENOXAPARIN 40 MG/0.4 ML SYRINGE SUBCUT SCH (09:24)
[2021-02-27] MEDS: PANTOPRAZOLE 40 MG TABLET PO SCH (09:24)
[2021-02-27] MEDS: FLUTICASONE 50 MCG NASAL SPRAY 16 GM BOTTLE BOTH NARES SCH ×2 (09:24→21:23)
[2021-02-27] MEDS: SODIUM HYPOCHLORITE 0.25% IRRIG 473 ML BOTTLE TOP SCH (09:24)
[2021-02-27] MEDS: DOCUSATE SODIUM 100 MG CAPSULE PO SCH ×2 (09:24→21:22)
[2021-02-27] MEDS: INSULIN LISPRO 100 UNIT/ML SUBCUT SCH ×4 (09:43→21:23)
[2021-02-27] MEDS: ESCITALOPRAM 10 MG TABLET PO SCH (21:22)
[2021-02-28] MEDS: ALBUTEROL/IPRATROPIUM 3 ML NEB RESP TX SCH ×4 (01:10→18:47)
[2021-02-28] MEDS ORDERED: MORPHINE 2 MG/1 ML SYRINGE IV ONE (03:59)
[2021-02-28] MEDS ORDERED: NITROGLYCERIN SL 0.4 MG TABLET SL PRN (04:01)
[2021-02-28] MEDS ORDERED: ASPIRIN CHEW 81 MG TABLET PO ONE ×2 (04:16→05:22)
[2021-02-28] MEDS ORDERED: ASPIRIN 325 MG TABLET ONE (04:18)
[2021-02-28] MEDS ORDERED: HEPARIN 5,000 UNIT/1 ML VIAL SUBCUT ONE (04:35)
[2021-02-28 05:04] VITALS: BP 177/93
[2021-02-28] MEDS: PIPERACILLIN/TAZOBACTAM 3,375 MG in SODIUM CHLORIDE 0.9% 100 ML IV SCH ×3 (05:20→21:06)
[2021-02-28] MEDS: ONDANSETRON 4 MG/2 ML VIAL IV PRN (05:21)
[2021-02-28] MEDS ORDERED: HEPARIN DRIP 25,000 UNITS/500 ML PREMIX IV ONE (06:08)
[2021-02-28] MEDS ORDERED: HEPARIN DRIP 25,000 UNITS/500 ML PREMIX IV SCH (06:30)
[2021-02-28] MEDS: carvediloL 3.125 MG TABLET PO SCH ×2 (06:40→21:05)
[2021-02-28] MEDS: NITROGLYCERIN 2% OINT 1 INCH/GM PACK TOP SCH ×3 (06:40→18:30)
[2021-02-28 06:43] LABS: Basophils # 0.1 10*3/uL (0.0-0.2); Basophils % 0.6 % (0.0-0.8); Eosinophils # 0.3 10*3/uL (0.0-0.87); Eosinophils % 2.6 % (0.00-10.9); Hematocrit 34.6 VOL% (42.0-52.0); Hemoglobin 11.6 GM/DL (14.0-18.0); Immature Granulocytes % 1.3 %; Immature Granulocytes Absolute 0.15 #; Lymphocytes # 1.9 10*3/uL (1.4-4.0); Lymphocytes % 16.1 % (21.2-54.2); Mean Corpuscular HGB Conc 33.5 GM/DL (32-36); Mean Corpuscular Volume 85.6 FL (87-102); Mean Platelet Volume 9.9 FL (9.6-12.0); Monocytes % 11.1 % (1.7-12.7); Neutrophils % 68.3 % (38.7-73.9); Platelet Count 520 T/CUMM (130-400); Red Blood Count 4.04 MC/CUMM (3.8-5.5); Red Cell Distribution Width 15.7 % (9.3-17.3); White Blood Count 11.6 T/CUMM (4-12)
[2021-02-28 06:45] LABS: Albumin 2.3 G/DL (3.4-5.0); Bilirubin,Total 0.4 MG/DL (0.20-1.00); Calcium 8.9 MG/DL (8.5-10.1); Osmolality,Calculated 272.4 MOS/KG (273-304); Potassium 4.3 MMOL/L (3.5-5.1); Total Protein 7.1 G/DL (6.4-8.2)
[2021-02-28] MEDS: DOCUSATE SODIUM 100 MG CAPSULE PO SCH ×2 (08:24→21:05)
[2021-02-28] MEDS: FLUTICASONE 50 MCG NASAL SPRAY 16 GM BOTTLE BOTH NARES SCH ×2 (08:25→21:05)
[2021-02-28] MEDS: PANTOPRAZOLE 40 MG TABLET PO SCH (08:25)
[2021-02-28] MEDS: SODIUM HYPOCHLORITE 0.25% IRRIG 473 ML BOTTLE TOP SCH (08:25)
[2021-02-28] MEDS: INSULIN LISPRO 100 UNIT/ML SUBCUT SCH ×4 (09:38→20:36)
[2021-02-28] MEDS: amLODIPine 5 MG TABLET PO SCH ×2 (11:11→16:43)
[2021-02-28] MEDS: lisinopriL 2.5 MG TABLET PO SCH ×2 (11:12→16:43)
[2021-02-28] MEDS ORDERED: MAGNESIUM SULF RIDER 2 GM/50 ML PREMIX IV PRN ×2 (12:25→12:29)
[2021-02-28] MEDS ORDERED: POTASSIUM CHLORIDE RIDER 10 MEQ/100 ML PREMIX IV PRN (12:25)
[2021-02-28] MEDS ORDERED: NITROGLYCERIN DRIP 50 MG/250 ML BOTTLE IV ONE (14:23)
[2021-02-28] MEDS ORDERED: VERAPAMIL 5 MG/2 ML VIAL ONE ×2 (14:23→14:50)
[2021-02-28] MEDS ORDERED: HYDROmorphone 2 MG/1 ML VIAL ONE (14:41)
[2021-02-28] MEDS ORDERED: MIDAZOLAM 2 MG/2 ML VIAL ONE (14:41)
[2021-02-28] MEDS ORDERED: DIAZEPAM 5 MG TABLET PO ONE (15:00)
[2021-02-28] MEDS ORDERED: diphenhydrAMINE CAP 25 MG CAPSULE PO ONE (15:00)
[2021-02-28] MEDS ORDERED: HEPARIN 5,000 UNIT/1 ML VIAL ONE (15:04)
[2021-02-28] MEDS ORDERED: TIROFIBAN 5,000 MCG/100 ML PREMIX IV SCH (15:30)
[2021-02-28] MEDS ORDERED: PRASUGREL 10 MG TABLET ONE (16:04)
[2021-02-28] MEDS: SODIUM CHLORIDE 0.9% 1,000 ML IV SCH (16:43)
[2021-02-28] MEDS ORDERED: ROSUVASTATIN 10 MG TABLET PO SCH (21:00)
[2021-02-28] MEDS: ESCITALOPRAM 10 MG TABLET PO SCH (21:05)
[2021-03-01] MEDS: NITROGLYCERIN 2% OINT 1 INCH/GM PACK TOP SCH ×2 (00:25→06:17)
[2021-03-01] MEDS: ALBUTEROL/IPRATROPIUM 3 ML NEB RESP TX SCH ×3 (01:18→13:45)
[2021-03-01 06:04] LABS: Basophils # 0.1 10*3/uL (0.0-0.2); Basophils % 0.6 % (0.0-0.8); Eosinophils # 0.3 10*3/uL (0.0-0.87); Hematocrit 35.5 VOL% (42.0-52.0); Hemoglobin 11.2 GM/DL (14.0-18.0); Immature Granulocytes % 1.3 %; Immature Granulocytes Absolute 0.14 #; Lymphocytes # 1.4 10*3/uL (1.4-4.0); Lymphocytes % 12.4 % (21.2-54.2); Mean Corpuscular HGB Conc 31.5 GM/DL (32-36); Mean Corpuscular Volume 87.4 FL (87-102); Mean Platelet Volume 9.6 FL (9.6-12.0); Monocytes % 11.7 % (1.7-12.7); Platelet Count 618 T/CUMM (130-400); Red Blood Count 4.06 MC/CUMM (3.8-5.5); Red Cell Distribution Width 15.8 % (9.3-17.3)
[2021-03-01 06:23] LABS: Osmolality,Calculated 271.2 MOS/KG (273-304); Potassium 4.4 MMOL/L (3.5-5.1)
[2021-03-01] MEDS: SODIUM CHLORIDE 0.9% 1,000 ML IV SCH (06:45)
[2021-03-01] MEDS: INSULIN LISPRO 100 UNIT/ML SUBCUT SCH ×2 (08:00→11:20)
[2021-03-01] MEDS ORDERED: ASPIRIN EC 81 MG TABLET PO SCH (09:00)
[2021-03-01] MEDS ORDERED: PRASUGREL 10 MG TABLET PO SCH (09:00)
[2021-03-01] MEDS ORDERED: HYDROmorphone 2 MG/1 ML VIAL IV PRN (09:00)
[2021-03-01] MEDS ORDERED: ASPIRIN CHEW 81 MG TABLET PO SCH (09:00)
[2021-03-01] MEDS: SODIUM HYPOCHLORITE 0.25% IRRIG 473 ML BOTTLE TOP SCH (09:20)
[2021-03-01] MEDS: FLUTICASONE 50 MCG NASAL SPRAY 16 GM BOTTLE BOTH NARES SCH (09:29)
[2021-03-01] MEDS: lisinopriL 2.5 MG TABLET PO SCH (09:29)
[2021-03-01] MEDS: DOCUSATE SODIUM 100 MG CAPSULE PO SCH (09:29)
[2021-03-01] MEDS: amLODIPine 5 MG TABLET PO SCH (09:29)
[2021-03-01] MEDS: PANTOPRAZOLE 40 MG TABLET PO SCH (09:29)
[2021-03-01] MEDS: carvediloL 3.125 MG TABLET PO SCH (09:29)
[2021-03-01] MEDS ORDERED: carvediloL 6.25 MG TABLET PO SCH (21:00)
[2021-03-01] MEDS ORDERED: ROSUVASTATIN 20 MG TABLET PO SCH (21:00)
[2021-03-02] MEDS ORDERED: lisinopriL 5 MG TABLET PO SCH (09:00)
[2021-03-02] MEDS ORDERED: lisinopriL 2.5 MG TABLET PO SCH (09:00)
== END 2021-03-01 14:14 | DRG 981 ==
LOC: N.ED 08:55 → N.EDINP 14:08 → N.3E 21:52 → N.ICU 02-28 05:02
PROVIDERS: ADMIT Surgery; ATTEND Surgery

== ENCOUNTER 2021-08-16 06:43 | Inpatient (IN) ==
[2021-08-10 12:12] LABS: Basophils # 0.1 10*3/uL (0.0-0.2); Basophils % 0.7 % (0.0-0.8); Eosinophils # 0.5 10*3/uL (0.0-0.87); Eosinophils % 4.1 % (0.00-10.9); Hematocrit 35.1 VOL% (42.0-52.0); Hemoglobin 11.2 GM/DL (14.0-18.0); Immature Granulocytes % 0.3 %; Immature Granulocytes Absolute 0.04 #; Lymphocytes # 2.5 10*3/uL (1.4-4.0); Lymphocytes % 19.2 % (21.2-54.2); Mean Corpuscular HGB Conc 31.9 GM/DL (32-36); Mean Platelet Volume 9.7 FL (9.6-12.0); Monocytes # 1.4 10*3/uL (0.11-0.8); Monocytes % 10.6 % (1.7-12.7); Neutrophils % 65.1 % (38.7-73.9); Platelet Count 371 T/CUMM (130-400); Red Blood Count 3.99 MC/CUMM (3.8-5.5); White Blood Count 12.8 T/CUMM (4-12)
[2021-08-10 12:22] LABS: INR 0.9; PT Patient Result 10.3 SECS (10.5-12.0); Partial Thromboplastin Time 26.6 SECS (23.8-32.1)
[2021-08-10 12:28] LABS: Alanine Aminotransferase 19 U/L (16-61); Albumin 3.3 G/DL (3.4-5.0); Alkaline Phosphatase 83 U/L (45-117); Aspartate Amino Transferase 14 U/L (0-37); Bilirubin,Total < 0.39 MG/DL (0.20-1.00); Blood Urea Nitrogen 25 MG/DL (7-18); Calcium 8.9 MG/DL (8.5-10.1); Carbon Dioxide 21 MMOL/L (21-32); Chloride 110 MMOL/L (98-107); Estimated Glom Filtration Rate 54 ML/MIN; Glucose 160 MG/DL (74-106); Osmolality,Calculated 281.7 MOS/KG (273-304); Potassium 5.1 MMOL/L (3.5-5.1); Sodium 138 MMOL/L (136-145); Total Protein 7.4 G/DL (6.4-8.2)
[~2021-08-16 06:43] MED LIST: HEPARIN/NACL 0.9% 2 UNITS/ML 1,000 UNIT/500 ML BAG IV ONE; LACTATED RINGERS 1,000 ML IV SCH; NITROGLYCERIN DRIP 50 MG/250 ML BOTTLE IV ONE; PHENYLEPHRINE DRIP 20 MG/250 ML PREMIX IV ONE
[2021-08-16] MEDS ORDERED: HEPARIN 5,000 UNIT/1 ML VIAL ONE (08:05)
[2021-08-16] MEDS ORDERED: MIDAZOLAM 2 MG/2 ML VIAL ONE (09:05)
[2021-08-16] MEDS ORDERED: propofoL 200 MG/20 ML VIAL IV ONE (09:05)
[2021-08-16] MEDS ORDERED: ROCURONIUM 50 MG/5 ML VIAL IV ONE (09:05)
[2021-08-16] MEDS ORDERED: SEVOFLURANE 1 UNIT/15 MINUTE INH ONE ×3 (09:05→10:43)
[2021-08-16] MEDS ORDERED: LIDOCAINE 2% 5 ML VIAL ONE (09:05)
[2021-08-16] MEDS ORDERED: fentaNYL 100 MCG/2 ML VIAL ONE (09:06)
[2021-08-16] MEDS ORDERED: HEPARIN 10,000 UNIT/10 ML VIAL ONE (09:58)
[2021-08-16] MEDS ORDERED: PROTAMINE SULFATE 50 MG/5 ML VIAL IV ONE (10:02)
[2021-08-16] MEDS ORDERED: SUGAMMADEX 200 MG/2 ML VIAL IV ONE (10:14)
[2021-08-16] MEDS ORDERED: NEOSTIGMINE 10 MG/10 ML VIAL ONE (10:30)
[2021-08-16] MEDS ORDERED: GLYCOPYRROLATE 0.4 MG/2 ML VIAL ONE (10:30)
[2021-08-16] MEDS ORDERED: PROMETHAZINE 25 MG/1 ML VIAL IM PRN (10:35)
[2021-08-16] MEDS ORDERED: NALOXONE 0.4 MG/ML VIAL IV PRN (10:35)
[2021-08-16] MEDS ORDERED: ONDANSETRON 4 MG/2 ML VIAL IV PRN ×2 (10:35→11:08)
[2021-08-16] MEDS ORDERED: HYDROmorphone 1 MG/1 ML SYRINGE IV PRN ×3 (10:35→11:08)
[2021-08-16] MEDS ORDERED: GLUCAGON 1 MG VIAL IM PRN (10:35)
[2021-08-16] MEDS ORDERED: oxyCODONE/ACETAMINOPHEN 5-325 MG TABLET PO PRN ×2 (10:35)
[2021-08-16] MEDS ORDERED: NITROGLYCERIN SL 0.4 MG TABLET SL PRN (10:38)
[2021-08-16] MEDS ORDERED: DOCUSATE SODIUM 100 MG CAPSULE PO PRN (10:38)
[2021-08-16] MEDS ORDERED: NITROPRUSSIDE 100 MG in DEXTROSE 5% 250 ML IV SCH (11:00)
[2021-08-16] MEDS ORDERED: PHENYLEPHRINE DRIP 40 MG/250 ML PREMIX IV SCH (11:00)
[2021-08-16] MEDS ORDERED: KETOROLAC 30 MG/1 ML VIAL ONE (11:06)
[2021-08-16] MEDS: LACTATED RINGERS 1,000 ML IV SCH ×2 (11:15→21:01)
[2021-08-16] MEDS ORDERED: DEXTROSE 10% 250 ML BAG IV PRN (11:27)
[2021-08-16] MEDS ORDERED: KETOROLAC 30 MG/1 ML VIAL IV ONE (11:30)
[2021-08-16 11:42] VITALS: BP 98/37
[2021-08-16] MEDS ORDERED: LACTATED RINGERS 500 ML IV ONE (12:14)
[2021-08-16] MEDS: INSULIN REGULAR 100 UNIT/ML SUBCUT SCH ×2 (12:28→17:57)
[2021-08-16] MEDS ORDERED: ESCITALOPRAM 10 MG TABLET PO SCH (21:00)
[2021-08-16] MEDS: carvediloL 6.25 MG TABLET PO SCH (21:01)
[2021-08-16] MEDS: FLUTICASONE 50 MCG NASAL SPRAY 16 GM BOTTLE BOTH NARES SCH (21:19)
[2021-08-17] MEDS: INSULIN REGULAR 100 UNIT/ML SUBCUT SCH ×2 (01:13→06:37)
[2021-08-17] MEDS: LACTATED RINGERS 1,000 ML IV SCH (07:18)
[2021-08-17] MEDS: FLUTICASONE 50 MCG NASAL SPRAY 16 GM BOTTLE BOTH NARES SCH (08:23)
[2021-08-17] MEDS ORDERED: CLOPIDOGREL 75 MG TABLET PO SCH (09:00)
[2021-08-17] MEDS ORDERED: ASPIRIN EC 81 MG TABLET PO SCH ×2 (09:00)
[2021-08-17] MEDS ORDERED: metFORMIN 500 MG TABLET PO SCH (09:00)
[2021-08-17] MEDS ORDERED: NON-FORMULARY MEDICATION (Empagliflozin [Jardiance] 10 mg Tablet) PO SCH (09:00)
[2021-08-17] MEDS ORDERED: lisinopriL 10 MG TABLET PO SCH (09:00)
[2021-08-17] MEDS ORDERED: PANTOPRAZOLE 40 MG TABLET PO SCH (09:00)
[2021-08-17] MEDS ORDERED: ROSUVASTATIN 20 MG TABLET PO SCH (09:00)
[2021-08-17] MEDS: carvediloL 6.25 MG TABLET PO SCH (09:16)
== END 2021-08-17 13:35 | disposition home or self-care (01) | DRG 39 ==
LOC: N.OR 06:43 → N.SDSINP 06:44 → N.ICU 11:35
PROVIDERS: ADMIT Surgery; ATTEND Surgery

== ENCOUNTER 2021-10-10 07:01 | Inpatient (IN) ==
[2021-10-05 11:42] LABS: Basophils # 0.1 10*3/uL (0.0-0.2); Basophils % 0.7 % (0.0-0.8); Eosinophils # 0.3 10*3/uL (0.0-0.87); Eosinophils % 3.8 % (0.00-10.9); Hematocrit 36.3 VOL% (42.0-52.0); Hemoglobin 11.5 GM/DL (14.0-18.0); Immature Granulocytes % 0.4 %; Immature Granulocytes Absolute 0.03 #; Lymphocytes # 2.1 10*3/uL (1.4-4.0); Lymphocytes % 25.4 % (21.2-54.2); Mean Corpuscular HGB Conc 31.7 GM/DL (32-36); Mean Corpuscular Volume 83.3 FL (87-102); Mean Platelet Volume 9.6 FL (9.6-12.0); Monocytes # 0.8 10*3/uL (0.11-0.8); Neutrophils % 60.7 % (38.7-73.9); Platelet Count 430 T/CUMM (130-400); Red Blood Count 4.36 MC/CUMM (3.8-5.5); Red Cell Distribution Width 17.7 % (9.3-17.3); White Blood Count 8.4 T/CUMM (4-12)
[2021-10-05 11:53] LABS: PT Patient Result 10.8 SECS (10.5-12.0); Partial Thromboplastin Time 31.9 SECS (23.7-32.9)
[2021-10-05 11:57] LABS: Osmolality,Calculated 290.5 MOS/KG (273-304)
[~2021-10-10 07:01] MED LIST changes: -HEPARIN/NACL 0.9% 2 UNITS/ML 1,000 UNIT/500 ML BAG IV ONE; -NITROGLYCERIN DRIP 50 MG/250 ML BOTTLE IV ONE; -PHENYLEPHRINE DRIP 20 MG/250 ML PREMIX IV ONE
[2021-10-10] MEDS ORDERED: ePHEDrine 50 MG/ML VIAL ONE (07:24)
[2021-10-10] MEDS ORDERED: propofoL 200 MG/20 ML VIAL IV ONE (07:27)
[2021-10-10] MEDS ORDERED: LIDOCAINE 2% 5 ML VIAL ONE (07:27)
[2021-10-10] MEDS ORDERED: MIDAZOLAM 2 MG/2 ML VIAL ONE (07:28)
[2021-10-10] MEDS ORDERED: fentaNYL 100 MCG/2 ML VIAL ONE (07:28)
[2021-10-10] MEDS ORDERED: PHENYLEPHRINE 1 MG/10 ML SYRINGE IV ONE (08:01)
[2021-10-10] MEDS ORDERED: SEVOFLURANE 1 UNIT/15 MINUTE INH ONE (08:01)
[2021-10-10] MEDS ORDERED: BUPIVACAINE MPF 0.25% 10 ML VIAL ONE (08:08)
[2021-10-10] MEDS ORDERED: HEPARIN 5,000 UNIT/1 ML VIAL ONE (08:08)
[2021-10-10] MEDS ORDERED: HEPARIN 10,000 UNIT/10 ML VIAL ONE (08:56)
[2021-10-10] MEDS ORDERED: PROTAMINE SULFATE 50 MG/5 ML VIAL IV ONE (08:56)
[2021-10-10] MEDS ORDERED: LACTATED RINGERS 1,000 ML IV ONE (08:57)
[2021-10-10] MEDS ORDERED: ROCURONIUM 50 MG/5 ML VIAL IV ONE (08:57)
[2021-10-10] MEDS ORDERED: GLYCOPYRROLATE 0.4 MG/2 ML VIAL ONE (09:30)
[2021-10-10] MEDS ORDERED: NEOSTIGMINE 10 MG/10 ML VIAL ONE (09:30)
[2021-10-10] MEDS ORDERED: DEXTROSE 10% 250 ML BAG IV PRN (10:06)
[2021-10-10] MEDS ORDERED: oxyCODONE/ACETAMINOPHEN 5-325 MG TABLET PO PRN (10:06)
[2021-10-10] MEDS ORDERED: GLUCAGON 1 MG VIAL IM PRN (10:06)
[2021-10-10] MEDS ORDERED: NALOXONE 0.4 MG/ML VIAL IV PRN (10:06)
[2021-10-10] MEDS ORDERED: HYDROmorphone 1 MG/1 ML SYRINGE IV PRN ×2 (10:06)
[2021-10-10] MEDS ORDERED: PROMETHAZINE 25 MG/1 ML VIAL IM PRN (10:06)
[2021-10-10] MEDS ORDERED: PHENYLEPHRINE DRIP 40 MG/250 ML PREMIX IV PRN (10:06)
[2021-10-10] MEDS ORDERED: NITROPRUSSIDE 100 MG in DEXTROSE 5% 250 ML IV PRN (10:06)
[2021-10-10] MEDS ORDERED: NITROGLYCERIN SL 0.4 MG TABLET SL PRN (10:09)
[2021-10-10] MEDS ORDERED: DOCUSATE SODIUM 100 MG CAPSULE PO PRN (10:09)
[2021-10-10] MEDS ORDERED: LABETALOL 20 MG/4 ML SYRINGE IV ONE (10:11)
[2021-10-10] MEDS ORDERED: ONDANSETRON 4 MG/2 ML VIAL IV PRN (10:55)
[2021-10-10] MEDS ORDERED: KETOROLAC 30 MG/1 ML VIAL ONE (10:59)
[2021-10-10] MEDS ORDERED: KETOROLAC 30 MG/1 ML VIAL IV ONE (10:59)
[2021-10-10] MEDS: ONDANSETRON 4 MG/2 ML VIAL IV PRN ×2 (11:10→23:23)
[2021-10-10] MEDS: HYDROmorphone 1 MG/1 ML SYRINGE IV PRN ×2 (11:11→11:26)
[2021-10-10] MEDS: LACTATED RINGERS 1,000 ML IV SCH ×3 (13:27→23:30)
[2021-10-10] MEDS ORDERED: MIDAZOLAM 100 MG in SODIUM CHLORIDE 0.9% 80 ML IV PRN (14:14)
[2021-10-10] MEDS: PHENOL 1.4% THROAT SPRAY 177 ML BOTTLE PO PRN (20:45)
[2021-10-10] MEDS: carvediloL 6.25 MG TABLET PO SCH (21:07)
[2021-10-10] MEDS: ESCITALOPRAM 10 MG TABLET PO SCH (21:07)
[2021-10-10] MEDS: VARENICLINE 1 MG PO SCH (21:07)
[2021-10-10] MEDS: FLUTICASONE 50 MCG NASAL SPRAY 16 GM BOTTLE BOTH NARES SCH (21:08)
[2021-10-10] MEDS: oxyCODONE/ACETAMINOPHEN 5-325 MG TABLET PO PRN (21:43)
[2021-10-10] MEDS ORDERED: DOPamine 800 MG/250 ML PREMIX IV PRN (22:27)
[2021-10-11] MEDS: LACTATED RINGERS 1,000 ML IV SCH (06:30)
[2021-10-11] MEDS: PHENOL 1.4% THROAT SPRAY 177 ML BOTTLE PO PRN ×2 (06:40→21:22)
[2021-10-11] MEDS: carvediloL 6.25 MG TABLET PO SCH ×2 (09:35→21:21)
[2021-10-11] MEDS: ROSUVASTATIN 20 MG TABLET PO SCH (09:36)
[2021-10-11] MEDS: PANTOPRAZOLE 40 MG TABLET PO SCH (09:36)
[2021-10-11] MEDS: ASPIRIN EC 81 MG TABLET PO SCH (09:36)
[2021-10-11] MEDS: CLOPIDOGREL 75 MG TABLET PO SCH (09:36)
[2021-10-11] MEDS: lisinopriL 10 MG TABLET PO SCH (09:36)
[2021-10-11] MEDS: NON-FORMULARY MEDICATION (Empagliflozin [Jardiance] 10 mg Tablet) PO SCH (09:37)
[2021-10-11] MEDS: VARENICLINE 1 MG PO SCH ×2 (09:38→21:26)
[2021-10-11] MEDS: FLUTICASONE 50 MCG NASAL SPRAY 16 GM BOTTLE BOTH NARES SCH ×2 (09:38→21:22)
[2021-10-11] MEDS ORDERED: ALBUTEROL/IPRATROPIUM 3 ML NEB RESP TX ONE (11:31)
[2021-10-11] MEDS: ONDANSETRON 4 MG/2 ML VIAL IV PRN (14:57)
[2021-10-11] MEDS: ESCITALOPRAM 10 MG TABLET PO SCH (21:21)
[2021-10-11] MEDS: oxyCODONE/ACETAMINOPHEN 5-325 MG TABLET PO PRN (21:21)
[2021-10-12] MEDS: oxyCODONE/ACETAMINOPHEN 5-325 MG TABLET PO PRN (02:15)
[2021-10-12] MEDS ORDERED: carvediloL 6.25 MG TABLET PO SCH (08:00)
[2021-10-12] MEDS ORDERED: metFORMIN 500 MG TABLET PO SCH (09:00)
[2021-10-12] MEDS: ROSUVASTATIN 20 MG TABLET PO SCH (09:03)
[2021-10-12] MEDS: PANTOPRAZOLE 40 MG TABLET PO SCH (09:03)
[2021-10-12] MEDS: NON-FORMULARY MEDICATION (Empagliflozin [Jardiance] 10 mg Tablet) PO SCH (09:03)
[2021-10-12] MEDS: lisinopriL 10 MG TABLET PO SCH (09:03)
[2021-10-12] MEDS: ASPIRIN EC 81 MG TABLET PO SCH (09:03)
[2021-10-12] MEDS: VARENICLINE 1 MG PO SCH (09:03)
[2021-10-12] MEDS: CLOPIDOGREL 75 MG TABLET PO SCH (09:03)
[2021-10-12] MEDS: FLUTICASONE 50 MCG NASAL SPRAY 16 GM BOTTLE BOTH NARES SCH (09:14)
[2021-10-12 12:14] VITALS: BP 164/74
== END 2021-10-12 14:42 | disposition home or self-care (01) | DRG 39 ==
LOC: N.SDSINP 07:01 → EDSTATUS 10:30 → N.CC 12:53 → N.3E 10-11 18:02
PROVIDERS: ADMIT Surgery; ATTEND Surgery